=== PATIENT | female | born 2000 | race Caucasian/White ===

== ENCOUNTER 2023-05-07 14:55 | Emergency (ER) | payer OTHER, SELFPAY ==
[2023-05-07 16:13] VITALS: BP 108/73; PULSE 84; RESP 18; TEMP 36.8; O2SAT 100; BMI 20.1
== END 2023-05-07 19:24 | disposition left against medical advice (07) ==
PROVIDERS: Emergency Provider Emergency Medicine
DX: F19.90 Other psychoactive substance use, unspecified, uncomplicated (principal)
CPT/HCPCS: 99281

== ENCOUNTER 2023-12-09 14:02 | Emergency (ER) | payer OTHER, SELFPAY ==
[2023-12-09 14:07] VITALS: BP 118/70; PULSE 84; O2SAT 99
[2023-12-09 14:41] VITALS: BP 110/38; PULSE 76; RESP 14; TEMP 37; O2SAT 97
--- NOTE | 2023-12-09 14:42 | ED.ABDPAIN ---
HPI - Abdominal Pain General Chief Complaint: Abdominal Pain Stated Complaint: LLQ PAIN X15 MIN PER EMS Time Seen by Provider: 12/09/23 17:07 Source: patient and old records reviewed History of Present Illness HPI narrative: Jenny is a 23 year old female with history of substance abuse presents today for evaluation of LLQ pain. She was brought in by ambulance for LLQ pain. No N/V/D. She suspects that she has food poisoning. Denies chance of , states that she is currently not sexually active. MD elicited complaint: abdominal pain Onset (ago): hour(s) Location: LLQ Quality: cramping Associated symptoms: denies other symptoms Related Data Allergies Allergy/AdvReac Type Severity Reaction Status Date / Time morphine [MORPHINE] Allergy Mild SWELLING Verified 05/07/23 16:12 Penicillins [PCN] Allergy Mild SWELLING Verified 05/07/23 16:12 Review of Systems Review of Systems Yes all other systems are reviewed and are negative PMFSH Social History Social History Advance Directives: No Advance Directives Information Provided: Yes Physical Exam ED Vital Signs: Vital Signs - 24 hr 12/09/23 14:41 12/09/23 17:02 Temperature 98.6 F 99.2 F Pulse Rate 76 73 Respiratory Rate 14 18 Blood Pressure 110/38 L 107/48 L Pulse Oximetry 97 95 Oxygen Delivery Method Room Air Room Air BMI result Body Mass Index 0.0 Appearance: Alert. Oriented X3. No acute distress. Eyes: Pupils equal, round and reactive to light. ENT: Pharynx normal. No tonsillar swelling or exudate. Neck: Normal inspection. CVS: Normal heart rate and rhythm. Pulses normal. Respiratory: No respiratory distress. Breath sounds normal. Abdomen: Soft and nontender. Skin: Skin warm and dry. Extremities: No lower extremity edema. No joint swelling. Neuro/psych: Oriented X 3. No motor deficit. Normal speech and cognition. Course Course Course Narrative: This is a Rapid Medical Examination (RME) in triage, full HPI, ROS, assessment and plan per primary provider in the Main ED. 23 yo female with history of asthma [facility] for evaluation of acute onset of LLQ pain that started around 1:50pm. +diarrhea x1. Thinks she has food poisoning. Pain started to ease, now 6/10. LMP 1 month ago. Lethargic in triage Plan: labs, RIVERO, Upreg Medical Decision Making Medical Decision Making [facility] Narrative: Jenny is a 23 year old female with history of substance abuse presenting today for evaluation of LLQ pain. She was [facility]IB[facility] from the [facility] where they found her drowsy and with LLQ. Teri N/V/D. On reevaluation, she states that she is feeling better and wishes to leave. Labs are significant for microcytic anemia, she states that she is aware of this. Low suspicion for , she is adamant about no sexual activity. She is alert and oriented x3. No pain with palpation of the abdomen and has no complaints at this time. She is stable and safe to discharge home. Differential Diagnosis Differential Diagnoses: The differential diagnosis associated with the presentation includes viral gastroenteritis, food poisoning, COVID, flu, acute substance intoxication, Lab Data [facility] Lab Attestation statement: I reviewed the patient's lab results. Positive for microcytic anemia. 12/09/23 14:56 12/09/23 14:56 Labs: Lab Results 12/09/23 Range/Units 14:56 WBC 9.2 (4.8-10.8) X10*3/uL RBC 4.92 (4.20-5.50) X10*6/uL Hgb 8.3 L (12.0-16.0) g/dl Hct 31.0 L (37.0-47.0) % MCV 63.0 L (80.0-98.0) fL MCH 16.9 L (27.0-33.0) pg MCHC 26.8 L (31.0-35.0) g/dl RDW 19.6 H (11.0-16.0) % Plt Count 493 H (160-400) X10*3/uL MPV 7.8 L (9.4-12.3) fL Immature Gran % (Auto) 0.4 (0.0-0.4) % Neut % (Auto) 76.6 H (45-73) % Lymph % (Auto) 15.7 L (20-40) % Price % (Auto) 6.2 (2-11) % Eos % (Auto) 0.7 (0-4) % Baso % (Auto) 0.4 (0-2) % Lymph # (Auto) 1.4 (1.2-4.9) X10*3/uL Price # (Auto) 0.6 (0.1-1.2) X10*3/uL Eos # (Auto) 0.1 (0.0-0.4) X10*3/uL Baso # (Auto) 0.0 (0.0-0.2) X10*3/uL Abs Immat Gran (auto) 0.04 H (0.00-0.03) X10*3/uL Absolute Neuts (auto) 7.1 (2.0-8.3) x10*3/uL Absolute Nucleated RBC 0.000 (0.0-0.012) X10*3/uL Nucleated RBC % (auto) 0.0 (0.0-0.2) /100WBC Sodium 140 (135-145) mmol/L Potassium 3.9 (3.3-5.1) mmol/L Chloride 108 (96-108) mmol/L Carbon Dioxide 28 (22-29) mmol/L Anion Gap 8 L (12-20) BUN 11 (9-16) mg/dL Creatinine 0.70 (0.5-1.4) mg/dL Estim Creat Clear Calc TNP Estimated GFR > 60 Random Glucose 81 (60-115) mg/dL Calcium 9.3 (8.4-10.2) mg/dL Magnesium 1.9 (1.6-2.6) mg/dL Total Bilirubin 0.2 (0.0-1.0) mg/dL Direct Bilirubin < 0.2 (0.0-0.5) mg/dL AST 16 (5-31) U/L ALT 7 (0-31) U/L Alkaline Phosphatase 65 (39-117) U/L Total Protein 7.6 (6.5-8.0) g/dL Albumin 3.5 (3.5-5.0) g/dL Lipase 19 (8-78) U/L Ethyl Alcohol < 10 mg/dL Independent Historian Clinical information obtained from an independent historian. History obtained from or confirmed by: Parent External Record Review External record reviewed: Outpatient record and Prior outpatient labs Prescription Management I considered prescription management with: Antibiotic Chronic Conditions Patient?s care impacted by: Other (substance use) Discharge Plan Discharge Clinical Impression: Abdominal pain Qualifiers: Abdominal location: left lower quadrant Qualified Code(s): R10.32 - Left lower quadrant pain Patient Disposition: Home, Self-Care Instructions: Abdominal Pain (ED) Additional Instructions: your labs showed anemia you should take an iron supplement your pancreas, kidney and liver tests were normal Recommend rest and plenty of oral hydration. Stick to a bland diet like soup and toast while you are not feeling well. Follow up with your doctor as needed. If you develop new or worsening symptoms call 911 or come back to the ER for further evaluation.
[2023-12-09 15:00] LABS: MANUAL DIFF FLAG NO
[2023-12-09 15:03] LABS: Basophils Percent Auto 0.4 % (0-2); Eosinophils Absolute Auto 0.1 X10*3/uL (0.0-0.4); Eosinophils Percent Auto 0.7 % (0-4); Hemoglobin 8.3 g/dl (12.0-16.0); Imm Gran Abs Auto 0.04 X10*3/uL (0.00-0.03); Imm Gran Pct Auto 0.4 % (0.0-0.4); Lymphocytes Absolute Auto 1.4 X10*3/uL (1.2-4.9); Lymphocytes Percent Auto 15.7 % (20-40); Mean Corpuscular HGB Conc 26.8 g/dl (31.0-35.0); Mean Corpuscular Hemoglobin 16.9 pg (27.0-33.0); Mean Platelet Volume 7.8 fL (9.4-12.3); Monocytes Absolute Auto 0.6 X10*3/uL (0.1-1.2); Monocytes Percent Auto 6.2 % (2-11); Neutrophils Absolute Auto 7.1 x10*3/uL (2.0-8.3); Neutrophils Percent Auto 76.6 % (45-73); Platelet Count 493 X10*3/uL (160-400); Red Blood Count 4.92 X10*6/uL (4.20-5.50); Red Cell Distribution Width 19.6 % (11.0-16.0); White Blood Count 9.2 X10*3/uL (4.8-10.8)
[2023-12-09 15:17] LABS: Alanine Aminotransferase 7 U/L (0-31); Albumin Level 3.5 g/dL (3.5-5.0); Alkaline Phosphatase 65 U/L (39-117); Anion Gap 8 (12-20); Aspartate Amino Transferase 16 U/L (5-31); Bilirubin Direct < 0.2 mg/dL (0.0-0.5); Bilirubin Total 0.2 mg/dL (0.0-1.0); Blood Urea Nitrogen 11 mg/dL (9-16); Calcium 9.3 mg/dL (8.4-10.2); Carbon Dioxide 28 mmol/L (22-29); Chloride 108 mmol/L (96-108); Estimated Glomerular Filt Rate > 60; Ethanol < 10 mg/dL; Glucose Random 81 mg/dL (60-115); Lipase 19 U/L (8-78); Magnesium 1.9 mg/dL (1.6-2.6); Potassium 3.9 mmol/L (3.3-5.1); Sodium 140 mmol/L (135-145); Total Protein 7.6 g/dL (6.5-8.0)
[2023-12-09 17:02] VITALS: BP 107/48; PULSE 73; RESP 18; TEMP 37.3; O2SAT 95
[2023-12-09 17:15] VITALS: BP 107/48; PULSE 73; RESP 18; TEMP 37.3; O2SAT 95
== END 2023-12-09 17:16 | disposition home or self-care (01) ==
PROVIDERS: Physician Assistant; Emergency Provider Emergency Medicine Emergency Medical Services
DX: R10.32 Left lower quadrant pain (principal); J45.909 Unspecified asthma, uncomplicated; Z88.0 Allergy status to penicillin; Z88.5 Allergy status to narcotic agent
CPT/HCPCS: 36415; 80048; 80076; 80307; 83690; 83735; 85025; 99282; 99283

== ENCOUNTER 2024-02-18 10:34 | Inpatient (IN) | payer SELFPAY ==
[2024-02-18] VITALS (7 sets, daily range): BP systolic 128–138; BP diastolic 60–89; PULSE 74–96; RESP 16; TEMP 36.6–38; O2SAT 95–100; BMI 21.3
--- NOTE | ~2024-02-18 | CT_ITS ---
EXAMINATION: CT SOFT TISSUE NECK WITHOUT CONTRAST CLINICAL INFORMATION: Right facial swelling and dental abscess COMPARISON: None available. TECHNIQUE: Helical imaging was performed in the axial plane with generation of coronal and sagittal reformatted images. This CT examination was performed using dose optimization techniques as appropriate, variously including the following: *Automated exposure control *Adjustment of mA and/or kV according to patient size (this includes techniques or standardized protocols for targeted exams where dose is matched to indication/reason for exam; i.e. extremities or head) *Use of iterative reconstruction technique DLP: 297 mGy-cm FINDINGS: SOFT TISSUE: There is marked asymmetric thickening of the right mandibular submandibular soft tissue and underlying platysma muscle, extensive inflammatory stranding is seen in subcutaneous tissue around the right lower jaw. There is no rim-enhancing soft tissue abscess visualized. PHARYNX: The visualized nasopharynx, oropharynx, hypopharynx are normal with no focal mass lesion. PHARYNGEAL STRUCTURES: Bilateral valleculae, epiglottis, piriform sinuses, vocal cords and arytenoids are normal. Paranasal sinuses: A globular shaped mucosal lesion is seen attached to anterior roof of left maxillary sinus measuring 1.1 cm in AP diameter, 1.5 cm in width, 0.8 cm in vertical height. At the left maxillary sinus floor, a polypoid mucosal lesions is seen, measuring 2.1 cm in AP and transverse diameter, 1.1 cm in vertical height. Mild mucosal thickening is also seen at the floor of right maxillary sinus. SALIVARY GLANDS: Bilateral parotid and submandibular salivary glands are symmetrical without focal lesion. LYMPH NODES: Markedly enlarged right level 1B cervical lymph nodes are seen measuring up to 1.5 cm in AP diameter, 1.0 cm in width. Smaller left level 1B cervical lymph node measures 1.1 cm in AP diameter, 0.7 cm in width. THYROID: No focal thyroid mass lesion is found. BONES: The visualized mandible is intact. No focal bone defect or periosteal reaction could be seen. The visualized lower jaw teeth are intact. No fracture or dislocation. No focal bone lesion diagnostic of metastatic disease could be seen in the cervical spine and visualized skull base. LUNG APICES: Irregular lobulated mass like alveolar density with radiolucent tracts suggestive of air bronchograms is partially visualized in posterior right upper lobe apical segment extending to the posterior pleural border, measuring 3.9 cm in AP diameter, 2.6 cm in width in the visible portion. CT/CT soft tissue neck wo IV con IMPRESSION: 1. Findings are compatible with severe right submandibular cellulitis without well-defined soft tissue abscess. 2. No signs of mandibular osteomyelitis or dental abscess could be seen. 3. Markedly enlarged right level 1B cervical lymph nodes. 4. Irregular lobulated mass like alveolar density with radiolucent tracts suggestive of air bronchograms is partially visualized in posterior right upper lobe apical segment extending to the posterior pleural border. Findings could represent focal pneumonia, mycetoma or lung tumor. Further evaluation with contrast-enhanced CT scan of chest is recommended. 5. Left maxillary sinus polypoid mucosal lesions.
--- NOTE | 2024-02-18 10:59 | MHC.RECOVRN ---
Received call from [employer] this morning that a participant was in need of medical attention due to mouth abscess and bilateral hip pain, however, was anxious regarding coming to the hospital. Met with pt upon arrival to [facility], pt acting erratically with sporadic periods of lethargy. Pt is unstably housed, reports she has been walking x 7 days. Pt reports she has a hole in her tooth which has led to the abscess. Difficult to engage in further conversation. Upon medical clearance, pt is able to utilize [employer] for transport. [employer] phone number: .
--- NOTE | 2024-02-18 11:10 | PC.NURSE ---
Patient brought into [facility] from waiting room. patient not answering this RN's questions or the PA's questions. patient keeps groaning, repositioning self on stretcher and not opening eyes. education administrative assistant applied, NSR, HR 91 resp even and non labored at 16, O2 100%, patient keeps pulling off pulse oximeter. provider aware
--- NOTE | 2024-02-18 13:16 | ED_ITS ---
HPI - General Adult General Chief complaint: Dental/Oral Stated complaint: Mouth abscess Time Seen by Provider: 02/18/24 10:50 Source: patient, RN notes reviewed and old records reviewed Mode of arrival: ambulatory History of Present Illness ED Provider: Muriel Elliott PA-C HPI narrative: 23-year-old female with a past medical history of polysubstance abuse, presenting to ED from [facility] complaining of right-sided facial swelling/suspected dental abscess noted yesterday. Patient lethargic/under the influence, uncooperative with history/physical. Patient is homeless Related Data Previous Rx's ?Medication ?Instructions ?Recorded acetaminophen 500 mg tablet 500 mg PO Q6H PRN fever or pain 02/18/24 (Tylenol Extra Strength) #14 tabs clindamycin HCl 150 mg capsule 450 mg (3 x 150 mg) PO TID 10 days 02/18/24 #90 caps ibuprofen 800 mg tablet 800 mg PO Q8H PRN pain #14 tabs 02/18/24 Allergies Allergy/AdvReac Type Severity Reaction Status Date / Time morphine [MORPHINE] Allergy Mild SWELLING Verified 02/18/24 10:43 Penicillins [PCN] Allergy Mild SWELLING Verified 02/18/24 10:43 Review of Systems 2 Review of Systems: ENT: +dental pain, +facial swelling ROS limited due to patient under the influence Yes all other systems are reviewed and are negative Constitutional: Constitutional: Reports as per [facility] Past Medical History Attestation statement: The following information was validated with the patient. Source: old records reviewed Social History Social History Unable to assess alcohol history related to: Refusing to respond Use of substances other than those prescribed or required for medical reasons: Refusing to respond Advance Directives: No Advance Directives Information Provided: Yes Physical Exam ED Vital Signs: Vital Signs - 24 hr 02/18/24 10:41 02/18/24 11:21 02/18/24 11:56 Temperature 99.0 F Pulse Rate 94 91 96 Respiratory Rate 16 16 16 Blood Pressure 138/60 Pulse Oximetry 95 100 97 Oxygen Delivery Method Room Air Room Air Room Air 02/18/24 14:00 02/18/24 18:00 02/18/24 20:20 Temperature 100 F 100.4 F 97.9 F Pulse Rate 90 81 76 Respiratory Rate 16 Blood Pressure 130/75 128/76 136/89 Pulse Oximetry 96 96 97 Oxygen Delivery Method Room Air Room Air Room Air 02/18/24 22:11 02/19/24 00:05 02/19/24 02:00 Temperature 98.6 F 97.9 F 98.6 F Pulse Rate 74 64 77 Respiratory Rate 16 16 16 Blood Pressure 130/62 132/74 134/53 L Pulse Oximetry 96 96 98 Oxygen Delivery Method Room Air Room Air Room Air BMI result Body Mass Index 21.3 Const Other: lethargic, under the influence General: no acute distress, lethargic and poor hygiene Orientation/consciousness: lethargic HENOH Other: +right sided facial/jaw swelling. no erythema. difficult to exam due to patient being uncooperative. no overt palpable dental abscess/obvious broken teeth Head: Yes normal to inspection and Yes atraumatic Ears: hearing grossly normal bilaterally General nose exam: Normal external nose present Mouth: no audible dysphonia, no drooling and no muffled voice Throat: Yes uvula midline Eyes General: appearance normal, both eyes and all related structures Neck Neck: Yes normal visual inspection and Yes no meningeal signs Resp Effort & Inspection: normal respiratory effort and no respiratory distress Cardio Rate: regular rate Skin Other: +skin picking Neuro General: tone normal and no meningeal signs Cranial nerves: Yes CN's II-XII intact bilaterally Extrem General: Yes normal to inspection Course Course Course Narrative: -1200--patient is still sleeping, maintaining airway, difficult to arouse -1310--patient more awake, sleepy, reports dental pain/right-sided facial swelling since yesterday. Remains difficult to examine. Will obtain labs and CT > patient refusing labs/IV. Also refused 800mg of ibuprofen. Case discussed with ED attending Dr. Umana who also evaluated patient. Will try to obtain CT dry & give PO clindamycin -1705--patient is still lethargic, easily arousable however remains uncooperative. Still refusing labs/IV, however did take ibuprofen and Clindamycin in the ED. CT soft tissue neck wo IV con IMPRESSION: 1. Findings are compatible with severe right submandibular cellulitis without well-defined soft tissue abscess. 2. No signs of mandibular osteomyelitis or dental abscess could be seen. 3. Markedly enlarged right level 1B cervical lymph nodes. 4. Irregular lobulated mass like alveolar density with radiolucent tracts suggestive of air bronchograms is partially visualized in posterior right upper lobe apical segment extending to the posterior pleural border. Findings could represent focal pneumonia, mycetoma or lung tumor. Further evaluation with contrast-enhanced CT scan of chest is recommended. 5. Left maxillary sinus polypoid mucosal lesions. > chest CT with IV contrast recommended however patient not agreeable to IV, will need as outpatient. Clindamycin will cover for possible pneumonia/submandibular cellulitis. We will continue to monitor for clinical sobriety. Will recommend admission if patient agreeable -1837--multiple attempts made to discuss patient's CT findings/recommended admission -1899--ED care transferred to [facility] One[facility] pending clinical sobriety. Reevaluation(s) Reevaluation #1: Away to re-evaluate patient and recommended she be admitted this and allow us to draw labs and start IV antibiotics but patient refused even when explained risk of , sepsis, disability if not treated and she still signed against medical advice. Patient is alert oriented x3. Time: 01:18 Reevaluation #2: Patient change her mind and now agreeable for admission for submandibular cellulitis. Case discussed with hospitalist Dr. Bell for admission. Time: 02:26 Medications Administered Discontinued Medications Generic Name Dose Route Start Last Admin Trade Name Freq PRN Reason Stop Dose Admin Clindamycin HCl 450 mg 02/18/24 13:45 02/18/24 16:33 Clindamycin Hcl 150 Mg Capsule PO 02/18/24 13:46 450 mg ONCE ONE Administration Ibuprofen 800 mg 02/18/24 13:18 02/18/24 16:32 Ibuprofen 800 Mg Tablet PO 02/18/24 13:19 800 mg ONCE ONE Administration Medical Decision Making Medical Decision Making MDM Narrative: 23-year-old female with a past medical history of polysubstance abuse, presenting to ED from [facility] complaining of right-sided facial swelling/suspected dental abscess noted yesterday. On exam low-grade temp 99 degrees, under the influence, lethargic, easily arousable however uncooperative, eyes closed during entire evaluation, flailing arms. Difficult to examine. Concern for dental abscess vs cellulitis and polysubstance use. Rule out osteomyelitis. Airway patent, talking in complete sentences, no drooling. Plan: Labs, CT, tox screen, antibiotics, pain control, observe and re-evaluate for clinical sobriety Please refer to course for remaining clinical decision making, interpretation of labs/imaging results, and discussions with consultants and/or family members. Differential Diagnosis Differential Diagnoses: The differential diagnosis associated with the presentation includes As above Admission/Observation Consideration of admission/observation: Escalation of care including admission/observation considered Lab Data MDM Lab Attestation statement: I reviewed the patient's lab results. 02/19/24 01:55 02/19/24 01:54 Labs: Lab Results 02/18/24 02/19/24 02/19/24 Range/Units 16:42 01:55 01:56 WBC 8.3 (4.8-10.8) X10*3/uL RBC 4.60 (4.20-5.50) X10*6/uL Hgb 7.8 L (12.0-16.0) g/dl Hct 27.3 L (37.0-47.0) % MCV 59.3 L (80.0-98.0) fL MCH 17.0 L (27.0-33.0) pg MCHC 28.6 L (31.0-35.0) g/dl RDW 18.6 H (11.0-16.0) % Plt Count 389 (160-400) X10*3/uL MPV 8.8 L (9.4-12.3) fL Immature Gran % (Auto) 0.2 (0.0-0.4) % Neut % (Auto) 63.1 (45-73) % Lymph % (Auto) 24.9 (20-40) % Stevens % (Auto) 9.0 (2-11) % Eos % (Auto) 2.2 (0-4) % Baso % (Auto) 0.6 (0-2) % Lymph # (Auto) 2.1 (1.2-4.9) X10*3/uL Stevens # (Auto) 0.7 (0.1-1.2) X10*3/uL Eos # (Auto) 0.2 (0.0-0.4) X10*3/uL Baso # (Auto) 0.1 (0.0-0.2) X10*3/uL Abs Immat Gran (auto) 0.02 (0.00-0.03) X10*3/uL Absolute Neuts (auto) 5.2 (2.0-8.3) x10*3/uL Absolute Nucleated RBC 0.000 (0.0-0.012) X10*3/uL Nucleated RBC % (auto) 0.0 (0.0-0.2) /100WBC Lactic Acid 0.6 (0.5-2.0) mmol/L Urine Opiates Screen POSITIVE H (Not Detect) Ur Buprenorphine Scrn Not Detected (Not Detect) ng/mL Ur Oxycodone Screen Not Detected (Not Detect) ng/mL Urine Methadone Screen Not Detected (Not Detect) ng/mL Urine Fentanyl Screen POSITIVE H (Not Detect) Ur Barbiturates Screen Not Detected (Not Detect) Ur Phencyclidine Scrn Not Detected (Not Detect) Ur Amphetamines Screen Not Detected (Not Detect) U Benzodiazepines Scrn Not Detected (Not Detect) Urine Cocaine Screen POSITIVE H (Not Detect) U Marijuana (THC) Screen Not Detected (Not Detect) Independent Interpretation I performed an independent interpretation of an: CT Scan Radiology Impression Discussion of test interpretation with radiology: I have reviewed the radiologist's reading. External Record Review External record reviewed: Inpatient record, Office record, Outpatient record, Prior outpatient labs, Prior outpatient radiology, Primary care record and Outside ED record Tests considered The following testing was considered but not selected: As above Prescription Management I considered prescription management with: Antibiotic Social Determinants Patient?s care significantly limited by Social Determinants of Health including: Inadequate housing, Low income and Alcoholism and drug addiction in family Critical Care Time Critical Care Time Critical Care Time: Yes Total Critical Care Time: 45 Attestation: I have personally provided critical care time exclusive of time spent on separately billable procedures. Time includes review of lab data, radiology results, discussion with consultants, and monitoring for potential decompensation. Intervention performed as documented. Discharge Plan Discharge Clinical Impression: Cellulitis of submandibular region, Lung mass Patient Disposition: Left Against Medical Advice Instructions: Cellulitis (DC) Additional Instructions: You have severe cellulitis of your submandibular region. Clindamycin as an antibiotic please take as prescribed until completion your CT shows a lobulated mass in your lung. This could represent a pneumonia or fungal infection or tumor. You need further imaging with a CT scan with IV contrast. Please take ibuprofen and Tylenol for pain/swelling If pain/swelling persists or worsens, you develop difficulty breathing, shortness of breath or fever return to the ED immediately You need to follow-up for re-evaluation in 2 days come back to the ED [facility] [id number] [address] [facility] [address], [place] [address] Prescriptions: New clindamycin HCl 150 mg capsule 450 mg PO TID 10 Days Qty: 90 0RF ibuprofen 800 mg tablet 800 mg PO Q8H PRN (Reason: pain) Qty: 14 0RF acetaminophen [Tylenol Extra Strength] 500 mg tablet 500 mg PO Q6H PRN (Reason: fever or pain) Qty: 14 0RF Referrals: [facility] [Outside] Physician,Unknown J [Primary Care Provider] - 2 days Stand Alone Forms: Against Medical Advice Print Language: Nepali
--- NOTE | 2024-02-18 13:40 | PC.NURSE ---
Patient awake, restless on stretcher, complaining of pain. PA to bedside to examine patient. PA explained plan of care for blood work and CT, pt agreeable. This RN attempted to place an IV and obtain blood work. Patient immediately moving arm away and refusing IV and blood work. Patient also refusing motrin. PA aware.
--- NOTE | 2024-02-18 15:33 | PC.NURSE ---
Patient sleeping, awakens to verbal stimuli. when asked how she is feeling patient states horrible. Patient then goes back to sleep. This RN continues to make attempts to medicate patient. Patient becomes irritated when RN wakes her up aeb yelling and flailing her legs then goes back to sleep. PA aware.
[2024-02-18] MEDS: Ibuprofen 800 MG TABLET PO (16:32)
[2024-02-18] MEDS: Clindamycin HCL 150 MG CAPSULE 450 MG PO (16:33)
[2024-02-18 17:01] LABS: Amphetamine Screen Urine Not Detected (Not Detect); Barbiturates, Urine Not Detected (Not Detect); Benzodiazepines Screen Urine Not Detected (Not Detect); Buprenorphine Scr Not Detected (Not Detect); Cannabinoid Screen Urine Not Detected (Not Detect); Cocaine Screen Urine POSITIVE (Not Detect); Fentanyl, urine POSITIVE (Not Detect); Methadone Screen, Urine Not Detected (Not Detect); Opiate Screen Urine POSITIVE (Not Detect); Oxycodone Screen Urine Not Detected (Not Detect); Phencyclidine Screen Urine Not Detected (Not Detect)
--- NOTE | 2024-02-18 22:00 | PC.NURSE ---
Pt resting quietly. States shes feeling okay. Denies any other needs at this time.
[2024-02-19] VITALS (9 sets, daily range): BP systolic 120–134; BP diastolic 53–76; PULSE 64–94; RESP 14–20; TEMP 36.6–37.5; O2SAT 96–100
--- NOTE | 2024-02-19 01:55 | PC.NURSE ---
Went in to give pt AMA form to sign and explain prescription medications and pt states she does not want to leave at this time and agreeable to admission. #20 PIV initiated to left forearm, blood cultures drawn, other labs drawn and sent to lab. Pt requesting food at this time. Denies any other needs.
[2024-02-19 02:05] LABS: MANUAL DIFF FLAG NO
[2024-02-19 02:06] LABS: Basophils Absolute Auto 0.1 X10*3/uL (0.0-0.2); Basophils Percent Auto 0.6 % (0-2); Eosinophils Absolute Auto 0.2 X10*3/uL (0.0-0.4); Eosinophils Percent Auto 2.2 % (0-4); Hematocrit 27.3 % (37.0-47.0); Hemoglobin 7.8 g/dl (12.0-16.0); Imm Gran Abs Auto 0.02 X10*3/uL (0.00-0.03); Imm Gran Pct Auto 0.2 % (0.0-0.4); Lymphocytes Absolute Auto 2.1 X10*3/uL (1.2-4.9); Lymphocytes Percent Auto 24.9 % (20-40); Mean Corpuscular HGB Conc 28.6 g/dl (31.0-35.0); Mean Corpuscular Volume 59.3 fL (80.0-98.0); Mean Platelet Volume 8.8 fL (9.4-12.3); Monocytes Absolute Auto 0.7 X10*3/uL (0.1-1.2); Neutrophils Absolute Auto 5.2 x10*3/uL (2.0-8.3); Neutrophils Percent Auto 63.1 % (45-73); Platelet Count 389 X10*3/uL (160-400); Red Cell Distribution Width 18.6 % (11.0-16.0); White Blood Count 8.3 X10*3/uL (4.8-10.8)
[2024-02-19 02:22] LABS: Lactic Acid 0.6 mmol/L (0.5-2.0)
[2024-02-19 02:30] LABS: Alanine Aminotransferase 19 U/L (0-31); Albumin Level 3.2 g/dL (3.5-5.0); Alkaline Phosphatase 62 U/L (39-117); Anion Gap 13 (12-20); Aspartate Amino Transferase 31 U/L (5-31); Bilirubin Total 0.4 mg/dL (0.0-1.0); Blood Urea Nitrogen 5 mg/dL (9-16); C Reactive Protein 9.96 mg/dL (< or = 0.50); Calcium 8.5 mg/dL (8.4-10.2); Carbon Dioxide 25 mmol/L (22-29); Chloride 104 mmol/L (96-108); Creatinine Clr Calc Pharmacy 140.3; Estimated Glomerular Filt Rate > 60; Glucose Random 76 mg/dL (60-115); Potassium 2.9 mmol/L (3.3-5.1); Sodium 139 mmol/L (135-145); Total Protein 6.1 g/dL (6.5-8.0)
[2024-02-19 02:38] LABS: Erythrocyte Sedimentation Rate 16 MM/HR (0-20)
[2024-02-19] MEDS: Potassium Chloride Packet 20 MEQ PACKET 40 MEQ PO (03:13)
[2024-02-19] MEDS: Clindamycin Phosphate/D5W 600 MG/50 ML PIGGYBACK 100 MG IV (03:13)
--- NOTE | 2024-02-19 03:13 | PC.NURSE ---
Pt medicated per MAR. Denies any other needs at this time .
--- NOTE | 2024-02-19 04:24 | P.HPHOSP_ITS ---
History of Present Illness Date of Service: 02/19/24 Attending physician on admission: Lacy Parada Chief Complaint: Right facial swelling Jenny Mcrae is a 23 years old woman with history of polysubstance abuse and homeless presents to the ED department complaining of right facial swelling over the last 2 days. She does complain of associated tenderness. She denies teeth pain. Patient would not answered my questions or examined her. She seems to be drowsy and annoyed by my questions. She told me she accepts to be admitted. According to ED provider the patient was initially refusing hospitalization and wanted to leave AMA. Last vital signs are normal (3:54 AM). Blood workup is remarkable for hyponatremia of 2.9. There is no leukocytosis or lactic acidosis. CRP is elevated. No other significant electrolyte imbalances noted. Renal function is normal as well as LFTs. Urine drug screen is positive for fentanyl, opiates and cocaine. Soft tissue neck without IV contrast showed findings compatible with severe right submandibular cellulitis without well-defined soft tissue abscess, no sign of mandibular osteomyelitis or dental abscess could be seen, marked enlarged right level 1B cervical lymph nodes and finding consistent with focal pneumonia, mycetoma or lung tumor in the right upper lobe. Chest CTA scan with IV contrast was recommended but the patient refused IV contrast. Review of Systems 2 Review of Systems: Limited as the patient was poorly cooperative. [facility] Medical History (Updated 02/19/24 @ 04:55 by Lacy Parada MD) IV drug user Chronic anemia Social History Unable to assess alcohol history related to: Refusing to respond Use of substances other than those prescribed or required for medical reasons: Refusing to respond Advance Directives: No Advance Directives Information Provided: Yes Meds Allergies Allergy/AdvReac Type Severity Reaction Status Date / Time morphine [MORPHINE] Allergy Mild SWELLING Verified 02/18/24 10:43 Penicillins [PCN] Allergy Mild SWELLING Verified 02/18/24 10:43 Active Medications: Current Medications Acetaminophen (Acetaminophen 325 Mg Tablet) 975 mg PO Q6H PRN PRN Reason: mild pain, headache or fever Levofloxacin (Levaquin) 750 mg in 150 mls @ 100 mls/hr IV Q24H [facility] Metronidazole (Flagyl) 500 mg in 100 mls @ 100 mls/hr IV Q8H [facility] Ibuprofen (Ibuprofen 400 Mg Tablet) 400 mg PO Q6H PRN PRN Reason: Pain, Severe (Pain Scale 7-10) Pharmacy Consult (Consult Rx Vancomycin Dosing) 1 each MISCELLANE DAILY PRN PRN Reason: Consult order Sodium Chloride (0.9 % Sodium Chloride Flush 3 Ml Syringe) 3 ml IVFLUSH QSHIFT LILIA Physical Exam 2 Vital Signs and Narrative: Vital Signs: Last Vital Signs Temp 98.8 F 02/19/24 03:54 Pulse 80 02/19/24 03:54 Resp 16 02/19/24 03:54 BP 130/70 02/19/24 03:54 Pulse Ox 98 02/19/24 03:54 O2 Del Method Room Air 02/19/24 03:54 BMI result Body Mass Index 21.3 Constitutional - Drowsy. Easily arousable but poorly cooperative with interview and physical examination. No respiratory distress. Afebrile. HEENT - Normocephalic. Right mandibular region swelling and tenderness to palpation. No erythema. Neck is supple and normal. Patient refused the rest of physical exam. Results Labs 02/19/24 01:55 02/19/24 01:54 Labs: Laboratory Results - last 24 hr 02/18/24 02/19/24 02/19/24 16:42 01:54 01:55 MCV 59.3 L MCH 17.0 L MCHC 28.6 L RDW 18.6 H Plt Count 389 MPV 8.8 L Immature Gran % (Auto) 0.2 Neut % (Auto) 63.1 Lymph % (Auto) 24.9 [place] % (Auto) 9.0 Eos % (Auto) 2.2 Baso % (Auto) 0.6 Lymph # (Auto) 2.1 [place] # (Auto) 0.7 Eos # (Auto) 0.2 Baso # (Auto) 0.1 Abs Immat Gran (auto) 0.02 Absolute Neuts (auto) 5.2 Absolute Nucleated RBC 0.000 Nucleated RBC % (auto) 0.0 ESR 16 Anion Gap 13 Estim Creat Clear Calc 140.3 Estimated GFR > 60 Random Glucose 76 Lactic Acid Calcium 8.5 D Total Bilirubin 0.4 AST 31 ALT 19 Alkaline Phosphatase 62 C-Reactive Protein 9.96 H Total Protein 6.1 L Albumin 3.2 L Urine Opiates Screen POSITIVE H Ur Buprenorphine Scrn Not Detected Ur Oxycodone Screen Not Detected Urine Methadone Screen Not Detected Urine Fentanyl Screen POSITIVE H Ur Barbiturates Screen Not Detected Ur Phencyclidine Scrn Not Detected Ur Amphetamines Screen Not Detected U Benzodiazepines Scrn Not Detected Urine Cocaine Screen POSITIVE H U Marijuana (THC) Screen Not Detected 02/19/24 01:56 MCV MCH MCHC RDW Plt Count MPV Immature Gran % (Auto) Neut % (Auto) Lymph % (Auto) [place] % (Auto) Eos % (Auto) Baso % (Auto) Lymph # (Auto) [place] # (Auto) Eos # (Auto) Baso # (Auto) Abs Immat Gran (auto) Absolute Neuts (auto) Absolute Nucleated RBC Nucleated RBC % (auto) ESR Anion Gap Estim Creat Clear Calc Estimated GFR Random Glucose Lactic Acid 0.6 Calcium Total Bilirubin AST ALT Alkaline Phosphatase C-Reactive Protein Total Protein Albumin Urine Opiates Screen Ur Buprenorphine Scrn Ur Oxycodone Screen Urine Methadone Screen Urine Fentanyl Screen Ur Barbiturates Screen Ur Phencyclidine Scrn Ur Amphetamines Screen U Benzodiazepines Scrn Urine Cocaine Screen U Marijuana (THC) Screen Imaging Radiologist's Impressions: Impressions Soft Tissue Neck CT 02/18/24 14:20 IMPRESSION: 1. Findings are compatible with severe right submandibular cellulitis without well-defined soft tissue abscess. 2. No signs of mandibular osteomyelitis or dental abscess could be seen. 3. Markedly enlarged right level 1B cervical lymph nodes. 4. Irregular lobulated mass like alveolar density with radiolucent tracts suggestive of air bronchograms is partially visualized in posterior right upper lobe apical segment extending to the posterior pleural border. Findings could represent focal pneumonia, mycetoma or lung tumor. Further evaluation with contrast-enhanced CT scan of chest is recommended. 5. Left maxillary sinus polypoid mucosal lesions. Assessment and Plan (1) Cellulitis of submandibular region: Status: Acute (2) Chronic anemia: Status: Acute (3) Hypokalemia: Status: Acute (4) IV drug user: Status: Acute Plan Jenny Mcrae is a 23 y/o woman. * Right submandibular cellulitis. Soft tissue CT scan showed no soft tissue or dental abscess or osteomyelitis. No sepsis criteria. Patient is homeless + IV drug user --> concern for not appropriate outpatient treatment and follow-up. Empiric IV antibiotic therapy with vancomycin, ceftriaxone and Flagyl. * Hopokalemia. KCl 4O mEq PO now. Continue to monitor K+ level. * Right upper lobe mass: Focal pneumonia versus mesothelioma or lung tumor. Patient needs chest CT scan with IV contrast for further evaluation of this mass but she has been refusing IV contrast. * Polysubstance abuse: Urine drug screen is positive for fentanyl and cocaine. Additional medicine consult. * Chronic anemia. Continue to monitor H&H. 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 DVT prophylaxis: Early ambulation Code status: Full Patient will need hospitalization for at least 2 midnight for IV antibiotic therapy for right submandibular cellulitis. Quality Stroke Does the patient have a stroke diagnosis?: No VTE Prior VTE?: No VTE Risk Level:: Medical - low VTE Device Contraindication: N/A - Device Ordered VTE Drug Contraindication: Treatment Not Indicated
[2024-02-19] MEDS: vancomycin HCL 1,500 MG in 0.9 % Sodium Chloride 500 ML 333.33 MG IV (05:10)
--- NOTE | 2024-02-19 05:56 | PC.NURSE ---
Pt with complaints of head itching during vancomycin infusion. Airway remains intact. Dr. Bell made aware. Vancomycin infusion stopped at this time.
--- NOTE | 2024-02-19 07:04 | PHA.PROG ---
Addendum entered by Hina Mera RPh 02/19/24 07:06: CURRENT DOSE 1250MG Q12H Original Note: Admission Date/Time: February 19, 2024 03:52 Indication: Skin & Skin Structure Weight in k.503 kg Adjusted body weight in Kg: Springer body weight in Kg: Obesity Dosing Indication % IBW: BMI 21.3 Serum Creatinine - Last 168 Hours 02/19/24 01:54 Creatinine 0.62 Estimated CrCl and GFR - Last 168 Hours 02/19/24 01:54 Estim Creat Clear Calc 140.3 Estimated GFR > 60 Vancomycin Loading Dose: 1500 X1 Current Vancomycin Dosing Regimen: 1500 Q12H Vancomycin Monitoring using AUC goal of 400 - 600 range with trough as surrogate marker: 491 Date and Time for next Vancomycin Level to be drawn: 02/19 @1600 Pharmacist Comments on Vancomycin Plan: Renal function stable, will follow tomorrow per trough. Vancomycin dosing will take advantage of [employer] as a clinical decision support tool that uses Bayesian modeling to calculate individual patient's pharmacokinetic parameters and forecast the patient's drug concentration time course with the target goal AUC 24 range of 400 - 600 mg/L/hr.
[2024-02-19 08:24] LABS: Iron 7 mcg/dL (30-160); Magnesium 1.9 mg/dL (1.6-2.6); Percent Iron Saturation 2 % (15-50); Total Iron Binding Capacity 287 mcg/dL (228-428); Unsaturated Iron Binding 280 ug/dL
[2024-02-19 08:37] LABS: Ferritin 10 ng/mL (10-122)
--- NOTE | 2024-02-19 09:10 | PHA.MEDREC ---
Pharmacy Consult ? Medication Reconciliation Pharmacy has completed the medication reconciliation.
--- NOTE | 2024-02-19 10:10 | HO.ADDICTCON ---
History of Present Illness Date of Service: 02/19/2024 Chief Complaint: Right Submandibular Cellulitis Reason for Consult: OUD Sources of Information: patient interviewed and chart reviewed HPI Narrative: Patient is a 23 year old female medically admitted with cellulitis of submandibular region She reports using 4-5 bags heroin/fentatnyl IN daily last use prior to ED arrival on 02/17 She is reporting very mild withdrawal at time of interview, but I know they are coming She reports she was previously on suboxone, but did not like it During interview she is appropriate, yet guarded and providing minimal responses. She does not appear restless, no yawning noted, mild body aches reported Some anxiety Review of Systems Constitutional: Reports as per HPI Diagnostics Vital Signs (24Hr): Vital Signs - 24 hr 02/18/24 10:41 02/18/24 11:21 02/18/24 11:56 Temperature 99.0 F Pulse Rate 94 91 96 Respiratory Rate 16 16 16 Blood Pressure 138/60 Pulse Oximetry 95 100 97 Oxygen Delivery Method Room Air Room Air Room Air 02/18/24 14:00 02/18/24 18:00 02/18/24 20:20 Temperature 100 F 100.4 F 97.9 F Pulse Rate 90 81 76 Respiratory Rate 16 Blood Pressure 130/75 128/76 136/89 Pulse Oximetry 96 96 97 Oxygen Delivery Method Room Air Room Air Room Air 02/18/24 22:11 02/19/24 00:05 02/19/24 02:00 Temperature 98.6 F 97.9 F 98.6 F Pulse Rate 74 64 77 Respiratory Rate 16 16 16 Blood Pressure 130/62 132/74 134/53 L Pulse Oximetry 96 96 98 Oxygen Delivery Method Room Air Room Air Room Air 02/19/24 03:54 02/19/24 05:35 02/19/24 07:35 Temperature 98.8 F 99.1 F 99.2 F Pulse Rate 80 86 89 Respiratory Rate 16 18 15 Blood Pressure 130/70 130/68 120/65 Pulse Oximetry 98 97 99 Oxygen Delivery Method Room Air Room Air Room Air BMI result Body Mass Index 21.3 Labs 02/19/24 12:46 02/19/24 12:12 Labs: Laboratory Results - last 48 hr 02/18/24 02/19/24 02/19/24 16:42 01:54 01:55 WBC 8.3 RBC 4.60 Hgb 7.8 L Hct 27.3 L MCV 59.3 L MCH 17.0 L MCHC 28.6 L RDW 18.6 H Plt Count 389 MPV 8.8 L Immature Gran % (Auto) 0.2 Neut % (Auto) 63.1 Lymph % (Auto) 24.9 [place] % (Auto) 9.0 Eos % (Auto) 2.2 Baso % (Auto) 0.6 Lymph # (Auto) 2.1 [place] # (Auto) 0.7 Eos # (Auto) 0.2 Baso # (Auto) 0.1 Abs Immat Gran (auto) 0.02 Absolute Neuts (auto) 5.2 Absolute Nucleated RBC 0.000 Nucleated RBC % (auto) 0.0 ESR 16 Sodium 139 Potassium 2.9 L* D Chloride 104 Carbon Dioxide 25 Anion Gap 13 BUN 5 L Creatinine 0.62 Estim Creat Clear Calc 140.3 Estimated GFR > 60 Random Glucose 76 Lactic Acid Calcium 8.5 D Magnesium 1.9 Iron 7 L TIBC 287 % Saturation 2 L Unsat Iron Binding 280 Ferritin 10 Total Bilirubin 0.4 AST 31 ALT 19 Alkaline Phosphatase 62 C-Reactive Protein 9.96 H Total Protein 6.1 L Albumin 3.2 L Urine Opiates Screen POSITIVE H Ur Buprenorphine Scrn Not Detected Ur Oxycodone Screen Not Detected Urine Methadone Screen Not Detected Urine Fentanyl Screen POSITIVE H Ur Barbiturates Screen Not Detected Ur Phencyclidine Scrn Not Detected Ur Amphetamines Screen Not Detected U Benzodiazepines Scrn Not Detected Urine Cocaine Screen POSITIVE H U Marijuana (THC) Screen Not Detected 02/19/24 01:56 WBC RBC Hgb Hct MCV MCH MCHC RDW Plt Count MPV Immature Gran % (Auto) Neut % (Auto) Lymph % (Auto) [place] % (Auto) Eos % (Auto) Baso % (Auto) Lymph # (Auto) [place] # (Auto) Eos # (Auto) Baso # (Auto) Abs Immat Gran (auto) Absolute Neuts (auto) Absolute Nucleated RBC Nucleated RBC % (auto) ESR Sodium Potassium Chloride Carbon Dioxide Anion Gap BUN Creatinine Estim Creat Clear Calc Estimated GFR Random Glucose Lactic Acid 0.6 Calcium Magnesium Iron TIBC % Saturation Unsat Iron Binding Ferritin Total Bilirubin AST ALT Alkaline Phosphatase C-Reactive Protein Total Protein Albumin Urine Opiates Screen Ur Buprenorphine Scrn Ur Oxycodone Screen Urine Methadone Screen Urine Fentanyl Screen Ur Barbiturates Screen Ur Phencyclidine Scrn Ur Amphetamines Screen U Benzodiazepines Scrn Urine Cocaine Screen U Marijuana (THC) Screen Imaging Radiology Impressions: ITS Impressions Soft Tissue Neck CT 02/18/24 14:20 IMPRESSION: 1. Findings are compatible with severe right submandibular cellulitis without well-defined soft tissue abscess. 2. No signs of mandibular osteomyelitis or dental abscess could be seen. 3. Markedly enlarged right level 1B cervical lymph nodes. 4. Irregular lobulated mass like alveolar density with radiolucent tracts suggestive of air bronchograms is partially visualized in posterior right upper lobe apical segment extending to the posterior pleural border. Findings could represent focal pneumonia, mycetoma or lung tumor. Further evaluation with contrast-enhanced CT scan of chest is recommended. 5. Left maxillary sinus polypoid mucosal lesions. Mental Status Exam Mental Status Exam Level of Consciousness: Awake and Appropriate Patient Behavior: Guarded and Cooperative Mood Description: Constricted Affect Description: Constricted and Anxious Medications Medications Current Medications Acetaminophen (Acetaminophen 325 Mg Tablet) 975 mg PO Q6H PRN PRN Reason: mild pain, headache or fever Levofloxacin (Levaquin) 750 mg in 150 mls @ 100 mls/hr IV Q24H [facility] Metronidazole (Flagyl) 500 mg in 100 mls @ 100 mls/hr IV Q8H [facility] Vancomycin HCl 1,250 mg/ (Sodium Chloride) 250 mls @ 166.667 mls/hr IV Q12H [facility] Ibuprofen (Ibuprofen 400 Mg Tablet) 400 mg PO Q6H PRN PRN Reason: Pain, Severe (Pain Scale 7-10) Methadone HCl (Methadone Hcl 20 Mg/2 Ml Oral.Conc) 10 mg PO ONCE ONE Stop: 02/19/24 10:06 Pharmacy Consult (Consult Rx Vancomycin Dosing) 1 each MISCELLANE DAILY PRN PRN Reason: Consult order Sodium Chloride (0.9 % Sodium Chloride Flush 3 Ml Syringe) 3 ml IVFLUSH QSHIFT LILIA Allergies Allergies Allergy/AdvReac Type Severity Reaction Status Date / Time morphine [MORPHINE] Allergy Mild SWELLING Verified 02/18/24 10:43 Penicillins [PCN] Allergy Mild SWELLING Verified 02/18/24 10:43 Assessment & Plan Assessment & Plan (1) Opioid use disorder: Status: Acute Code(s): F11.90 - Opioid use, unspecified, uncomplicated Assessment and Plan: methadone 10mg X1--minimal effect. additional 10mg ordered and administered. 10mg will be ordered for this evening (total of 30mg) tomorrow morning 30mg methadone will continue to follow Total time managing care of this patient today _35__ minutes. PMFSH Past Medical History Medical History (Updated 02/19/24 @ 10:11 by Suzanna Mason CNP) IV drug user Chronic anemia Social History Social History Unable to assess alcohol history related to: Refusing to respond Use of substances other than those prescribed or required for medical reasons: Refusing to respond Advance Directives: No Advance Directives Information Provided: Yes service: No
[2024-02-19] MEDS: levoFLOXacin/D5W 750 MG/150 ML PIGGYBACK 100 MG IV (10:26)
[2024-02-19] MEDS: 0.9 % Sodium Chloride Flush 3 ML SYRINGE IVFLUSH ×3 (10:30→22:44)
[2024-02-19] MEDS: methADONE HCl 20 MG/2 ML ORAL.CONC 10 MG PO ×3 (11:19→18:40)
--- NOTE | 2024-02-19 11:46 | PM.EVENT ---
Event Note Date of Service: 02/19/24 Event Note: Day hospitalist update S: awake/alert, c/o R-sided neck + lower facial pain no cough/hemoptysis/night sweats no travel overseas or to areas of endemic mycoses no TB exposure agrees to CT chest with contrast now O: Temp Pulse Resp BP Pulse Ox O2 Del Method 98.9 F 91 16 122/63 98 Room Air 02/19/24 10:55 02/19/24 10:55 02/19/24 10:55 02/19/24 10:55 02/19/24 10:55 02/19/24 10:55 Gen: in no acute distress HEENT: sclera anicteric, moist mucus membranes Neck: extensive swelling of anterior R neck and lower face without fluctuance Lungs: clear to auscultation bilaterally Heart: regular rate and rhythm, no murmurs Abd: soft, non-tender, non-distended Ext: no edema Skin: warm/well-perfused Neuro: alert and oriented x3, no focal findings Psych: appropriate affect Impressions Soft Tissue Neck CT 02/18/24 14:20 IMPRESSION: 1. Findings are compatible with severe right submandibular cellulitis without well-defined soft tissue abscess. 2. No signs of mandibular osteomyelitis or dental abscess could be seen. 3. Markedly enlarged right level 1B cervical lymph nodes. 4. Irregular lobulated mass like alveolar density with radiolucent tracts suggestive of air bronchograms is partially visualized in posterior right upper lobe apical segment extending to the posterior pleural border. Findings could represent focal pneumonia, mycetoma or lung tumor. Further evaluation with contrast-enhanced CT scan of chest is recommended. 5. Left maxillary sinus polypoid mucosal lesions. A/P: d1 23yo homeless F with polysubstance abuse disorder presenting with 2d of R face/neck swelling, found to have severe submandibular cellulitis but also found to have RUL mass submandibular cellulitis - 02/18- vanco + levo + metronidazole; consult ID; follow BCx RUL lobulated mass - ddx: focal PNA/abscess, mycetoma, cancer. will obtain CT chest with contrast. hypoK - repleted PO, recheck pending DEVON - replete Fe after bacterial infection under control; monitor H+H polysubstance abuse [fentanyl, cocaine] - Addiction Medicine consultation, screen for HBV/HCV/HIV VTE ppx - SCDs dispo - TBD In my clinical judgment, the patient requires continued hospitalization for the following reasons: IV ABX/imaging studies Time Spent With Patient Time: Total time managing care of this patient today ____ minutes.
[2024-02-19 12:33] LABS: Anion Gap 10 (12-20); Blood Urea Nitrogen 4 mg/dL (9-16); Calcium 8.7 mg/dL (8.4-10.2); Carbon Dioxide 26 mmol/L (22-29); Chloride 107 mmol/L (96-108); Creatinine Clr Calc Pharmacy 144.9; Estimated Glomerular Filt Rate > 60; Glucose Random 109 mg/dL (60-115); Potassium 4.2 mmol/L (3.3-5.1); Sodium 139 mmol/L (135-145)
[2024-02-19] MEDS: metroNIDAZOLE/NS 500 MG/100 ML PIGGYBACK 100 MG IV ×2 (12:39→21:07)
[2024-02-19 12:41] LABS: HCG Quantitative < 2 mIU/mL
[2024-02-19 12:52] LABS: Basophils Percent Auto 0.4 % (0-2); Eosinophils Percent Auto 0.3 % (0-4); Hematocrit 30.5 % (37.0-47.0); Hemoglobin 8.7 g/dl (12.0-16.0); Imm Gran Abs Auto 0.12 X10*3/uL (0.00-0.03); Imm Gran Pct Auto 1.2 % (0.0-0.4); Lymphocytes Percent Auto 10.2 % (20-40); MANUAL DIFF FLAG SCAN; Mean Corpuscular HGB Conc 28.5 g/dl (31.0-35.0); Monocytes Absolute Auto 0.7 X10*3/uL (0.1-1.2); Monocytes Percent Auto 6.9 % (2-11); Neutrophils Absolute Auto 8.2 x10*3/uL (2.0-8.3); PLT CLUMP 1; Red Blood Count 5.12 X10*6/uL (4.20-5.50); SCAN SMEAR FLAG 1
[2024-02-19 12:54] LABS: Mean Corpuscular Volume 59.6 fL (80.0-98.0)
[2024-02-19 13:37] LABS: Mean Platelet Volume 9.1 fL (9.4-12.3); Platelet Count 350 X10*3/uL (160-400); White Blood Count 10.1 X10*3/uL (4.8-10.8)
[2024-02-19 13:42] LABS: SLIDE REVIEW VERIFIED
--- NOTE | 2024-02-19 14:25 | MHC.CM.PN ---
Pt said that she is homeless, she does not have a PCP, or HCP and does not want information on obtaining them. She said she does not know why she is here, that what she needs is a dentist. She said that she does have Medicaid. DCP: self care, CM to follow for DC needs.
[2024-02-19] MEDS: vancomycin HCL 1,250 MG in 0.9 % Sodium Chloride 250 ML 166.67 MG IV (17:30)
[2024-02-19] MEDS: Nicotine Polacrilex 2 MG GUM BUCCAL (22:43)
[2024-02-20 03:29] VITALS: BP 126/71; PULSE 70; RESP 18; TEMP 36.3; O2SAT 97
[2024-02-20] MEDS: metroNIDAZOLE/NS 500 MG/100 ML PIGGYBACK 100 MG IV ×2 (04:12→12:34)
[2024-02-20] MEDS: vancomycin HCL 1,250 MG in 0.9 % Sodium Chloride 250 ML 166.67 MG IV (05:17)
[2024-02-20 06:27] LABS: Hematocrit 27.3 % (37.0-47.0); Hemoglobin 7.7 g/dl (12.0-16.0); Mean Corpuscular HGB Conc 28.2 g/dl (31.0-35.0); Mean Corpuscular Hemoglobin 16.8 pg (27.0-33.0); Mean Corpuscular Volume 59.7 fL (80.0-98.0); Mean Platelet Volume 9.2 fL (9.4-12.3); Platelet Count 441 X10*3/uL (160-400); Red Blood Count 4.57 X10*6/uL (4.20-5.50); Red Cell Distribution Width 19.1 % (11.0-16.0)
[2024-02-20 06:47] LABS: Alanine Aminotransferase 14 U/L (0-31); Alkaline Phosphatase 56 U/L (39-117); Anion Gap 10 (12-20); Aspartate Amino Transferase 19 U/L (5-31); Bilirubin Total 0.2 mg/dL (0.0-1.0); Blood Urea Nitrogen 5 mg/dL (9-16); Calcium 8.7 mg/dL (8.4-10.2); Carbon Dioxide 27 mmol/L (22-29); Chloride 109 mmol/L (96-108); Creatinine Clr Calc Pharmacy 149.9; Estimated Glomerular Filt Rate > 60; Glucose Random 84 mg/dL (60-115); Potassium 3.5 mmol/L (3.3-5.1); Sodium 142 mmol/L (135-145); Total Protein 5.8 g/dL (6.5-8.0)
[2024-02-20 07:51] VITALS: BP 111/53; PULSE 72; RESP 18; TEMP 36.2; O2SAT 98
[2024-02-20 08:15] LABS: HBS Num1 0.63 mIU/mL (0-7.99); HBc Num1 0.19 S/CO (0.00-0.79); HBsAGNum1 0.36 S/CO (0.00-0.99); HIV AB/AG Nonreactive (Nonreactive); HIV Num 1 0.05 S/CO (0.00-0.99); Hepatitis B Core Antibody Nonreactive (Nonreactive); Hepatitis B Surface Antigen Negative (Negative); ~HepC Num1 0.15 S/CO (0.00-0.79); ~Hepatitis B Surface Antibody NONREACTIVE (Nonreactive); ~Hepatitis C Antibody Nonreactive (Nonreactive)
[2024-02-20] MEDS: methADONE HCl 20 MG/2 ML ORAL.CONC 30 MG PO (08:41)
[2024-02-20] MEDS: 0.9 % Sodium Chloride Flush 3 ML SYRINGE IVFLUSH (08:42)
[2024-02-20] MEDS: levoFLOXacin/D5W 750 MG/150 ML PIGGYBACK 100 MG IV (08:48)
[2024-02-20] MEDS: Nicotine Polacrilex 2 MG GUM BUCCAL (08:49)
--- NOTE | 2024-02-20 09:30 | P.PNIM_ITS ---
Subjective Subjective Date of Service: 02/20/24 Interval History: refused CT chest yesterday x2 but agrees to go today no fever/cough/chills has bad tooth R neck swelling improved Review of Systems Review of Systems: Yes all other systems are reviewed and are negative Physical Exam 2 Vital Signs: Vital Signs: Last Vital Signs Temp 97.1 F 02/20/24 07:51 Pulse 72 02/20/24 07:51 Resp 18 02/20/24 07:51 BP 111/53 L 02/20/24 07:51 Pulse Ox 98 02/20/24 07:51 O2 Del Method Room Air 02/20/24 07:51 BMI result Body Mass Index 21.3 Gen: in no acute distress HEENT: sclera anicteric, moist mucus membranes Neck: extensive swelling of anterior R neck and lower face without fluctuance; improved from yesterday Lungs: clear to auscultation bilaterally Heart: regular rate and rhythm, no murmurs Abd: soft, non-tender, non-distended Ext: no edema Skin: warm/well-perfused Neuro: alert and oriented x3, no focal findings Psych: appropriate affect Objective Data Active Medications Acetaminophen (Acetaminophen 325 Mg Tablet) 975 mg PO Q6H PRN PRN Reason: mild pain, headache or fever Levofloxacin (Levaquin) 750 mg in 150 mls @ 100 mls/hr IV Q24H [facility] Last Admin: 02/20/24 08:48 Dose: 100 mls/hr Documented By: JAYSON Vancomycin HCl 1,250 mg/ (Sodium Chloride) 250 mls @ 166.667 mls/hr IV Q12H [facility] Last Infusion: 02/20/24 07:18 Dose: Infused Documented By: JAYSON Metronidazole (Flagyl) 500 mg in 100 mls @ 100 mls/hr IV Q8H [facility] Last Infusion: 02/20/24 05:12 Dose: Infused Documented By: LOREN Ibuprofen (Ibuprofen 400 Mg Tablet) 400 mg PO Q6H PRN PRN Reason: Pain, Severe (Pain Scale 7-10) Methadone HCl (Methadone Hcl 20 Mg/2 Ml Oral.Conc) 30 mg PO DAILY [facility] Last Admin: 02/20/24 08:41 Dose: 30 mg Documented By: JAYSON Nicotine Polacrilex (Nicotine Polacrilex 2 Mg Gum) 2 mg BUCCAL Q2H PRN PRN Reason: Nicotine Cravings Last Admin: 02/20/24 08:49 Dose: 2 mg Documented By: JAYSON Pharmacy Consult (Consult Rx Vancomycin Dosing) 1 each MISCELLANE DAILY PRN PRN Reason: Consult order Sodium Chloride (0.9 % Sodium Chloride Flush 3 Ml Syringe) 3 ml IVFLUSH QSHIFT [facility] Last Admin: 02/20/24 08:42 Dose: 3 ml Documented By: JAYSON Labs 02/20/24 05:16 02/20/24 05:16 Labs: Laboratory Results - last 24 hr 02/19/24 02/19/24 02/20/24 12:12 12:46 05:16 MCV 59.6 L 59.7 L MCH 17.0 L 16.8 L MCHC 28.5 L 28.2 L RDW 19.0 H 19.1 H Plt Count 350 441 H D MPV 9.1 L 9.2 L Immature Gran % (Auto) 1.2 H Neut % (Auto) 81.0 H Lymph % (Auto) 10.2 L [place] % (Auto) 6.9 Eos % (Auto) 0.3 Baso % (Auto) 0.4 Lymph # (Auto) 1.0 L [place] # (Auto) 0.7 Eos # (Auto) 0.0 Baso # (Auto) 0.0 Abs Immat Gran (auto) 0.12 H Absolute Neuts (auto) 8.2 Absolute Nucleated RBC 0.000 0.000 Nucleated RBC % (auto) 0.0 0.0 Smear Tech's Comments VERIFIED Anion Gap 10 L 10 L Estim Creat Clear Calc 144.9 149.9 Estimated GFR > 60 > 60 Random Glucose 109 84 Calcium 8.7 8.7 Magnesium 2.0 2.0 Total Bilirubin 0.2 AST 19 ALT 14 Alkaline Phosphatase 56 Total Protein 5.8 L Albumin 3.0 L Beta HCG, Quant < 2 Hep Bs Antigen Negative Hep Bs Antibody NONREACTIVE Hep B Core Total Ab Nonreactive Hepatitis C Ab (EIA) Nonreactive HIV 1&2 Ab/P24 Ag 4thGn Nonreactive Microbiology Microbiology Results: Microbiology 02/19/24 02:08 Blood Culture - Preliminary Blood - Venous No growth after 24 hours. 02/19/24 01:54 Blood Culture - Preliminary Blood - Venous No growth after 24 hours. Assessment and Plan (1) Cellulitis of submandibular region: Status: Acute Assessment and Plan: d1 23yo homeless F with polysubstance abuse disorder presenting with 2d of R face/neck swelling, found to have severe submandibular cellulitis but also found to have RUL mass submandibular cellulitis - 02/18- vancomycin + levofloxacin + metronidazole [PCN-allergic]; consult ID; follow BCx RUL lobulated mass - ddx: focal PNA/abscess, mycetoma, cancer. obtain CT chest with contrast today hypoK - repleted DEVON - replete Fe after bacterial infection under control; monitor H+H polysubstance abuse [fentanyl, cocaine] - Addiction Medicine consultated + started on methadone - HBV/HCV/HIV negative VTE ppx - SCDs dispo - TBD In my clinical judgment, the patient requires continued hospitalization for the following reasons: IV ABX/imaging studies Total time managing care of this patient today: 35 minutes. Quality Stroke Does the patient have a stroke diagnosis?: No VTE Prior VTE?: No VTE Risk Level:: Medical - low VTE Device Contraindication: N/A - Device Ordered VTE Drug Contraindication: Treatment Not Indicated
--- NOTE | 2024-02-20 10:33 | P.PNADD_ITS ---
Subjective Subjective Date of Service: 02/20/24 Reason For Visit: Right Submandibular Cellulitis Interim History: Patient seen in follow up methadone 30mg --tolerating dose. Does not appear to be experiencing any withdrawal sx and is not reporting any no issues reported overnight Additional history obtained She reports opiate use started at age 13 denies any history of IVDU previous treatment while incarcerated unhoused She would like to continue with methadone and requests referral to [facility] Review of Systems Constitutional: Reports as per HPI and Reports no additional constitutional complaints Mental Status Exam Mental Status Exam Patient Appearance: Appropriate Level of Consciousness: Awake, Appropriate and Alert Patient Behavior: Appropriate and Guarded Mood Description: Calm Affect Description: Calm Diagnostics Vital Signs (24Hr): Vital Signs - 24 hr 02/19/24 10:55 02/19/24 14:10 02/19/24 19:32 Temperature 98.9 F 98.2 F 99.5 F Pulse Rate 91 67 94 Respiratory Rate 16 20 14 Blood Pressure 122/63 123/75 132/64 Pulse Oximetry 98 98 98 Oxygen Delivery Method Room Air Room Air Room Air 02/19/24 22:35 02/20/24 03:29 02/20/24 07:51 Temperature 97.8 F 97.4 F 97.1 F Pulse Rate 66 70 72 Respiratory Rate 18 18 18 Blood Pressure 129/76 126/71 111/53 L Pulse Oximetry 100 97 98 Oxygen Delivery Method Room Air Room Air Room Air BMI result Body Mass Index 21.3 Labs 02/20/24 05:16 02/20/24 05:16 Labs: Laboratory Results - last 48 hr 02/18/24 02/19/24 02/19/24 16:42 01:54 01:55 WBC 8.3 RBC 4.60 Hgb 7.8 L Hct 27.3 L MCV 59.3 L MCH 17.0 L MCHC 28.6 L RDW 18.6 H Plt Count 389 MPV 8.8 L Immature Gran % (Auto) 0.2 Neut % (Auto) 63.1 Lymph % (Auto) 24.9 [place] % (Auto) 9.0 Eos % (Auto) 2.2 Baso % (Auto) 0.6 Lymph # (Auto) 2.1 [place] # (Auto) 0.7 Eos # (Auto) 0.2 Baso # (Auto) 0.1 Abs Immat Gran (auto) 0.02 Absolute Neuts (auto) 5.2 Absolute Nucleated RBC 0.000 Nucleated RBC % (auto) 0.0 Smear Tech's Comments ESR 16 Sodium 139 Potassium 2.9 L* D Chloride 104 Carbon Dioxide 25 Anion Gap 13 BUN 5 L Creatinine 0.62 Estim Creat Clear Calc 140.3 Estimated GFR > 60 Random Glucose 76 Lactic Acid Calcium 8.5 D Magnesium 1.9 Iron 7 L TIBC 287 % Saturation 2 L Unsat Iron Binding 280 Ferritin 10 Total Bilirubin 0.4 AST 31 ALT 19 Alkaline Phosphatase 62 C-Reactive Protein 9.96 H Total Protein 6.1 L Albumin 3.2 L Beta HCG, Quant Urine Opiates Screen POSITIVE H Ur Buprenorphine Scrn Not Detected Ur Oxycodone Screen Not Detected Urine Methadone Screen Not Detected Urine Fentanyl Screen POSITIVE H Ur Barbiturates Screen Not Detected Ur Phencyclidine Scrn Not Detected Ur Amphetamines Screen Not Detected U Benzodiazepines Scrn Not Detected Urine Cocaine Screen POSITIVE H U Marijuana (THC) Screen Not Detected Hep Bs Antigen Hep Bs Antibody Hep B Core Total Ab Hepatitis C Ab (EIA) HIV 1&2 Ab/P24 Ag 4thGn 02/19/24 02/19/24 02/19/24 01:56 12:12 12:46 WBC 10.1 RBC 5.12 Hgb 8.7 L Hct 30.5 L MCV 59.6 L MCH 17.0 L MCHC 28.5 L RDW 19.0 H Plt Count 350 MPV 9.1 L Immature Gran % (Auto) 1.2 H Neut % (Auto) 81.0 H Lymph % (Auto) 10.2 L [place] % (Auto) 6.9 Eos % (Auto) 0.3 Baso % (Auto) 0.4 Lymph # (Auto) 1.0 L [place] # (Auto) 0.7 Eos # (Auto) 0.0 Baso # (Auto) 0.0 Abs Immat Gran (auto) 0.12 H Absolute Neuts (auto) 8.2 Absolute Nucleated RBC 0.000 Nucleated RBC % (auto) 0.0 Smear Tech's Comments VERIFIED ESR Sodium 139 Potassium 4.2 D Chloride 107 Carbon Dioxide 26 Anion Gap 10 L BUN 4 L Creatinine 0.60 Estim Creat Clear Calc 144.9 Estimated GFR > 60 Random Glucose 109 Lactic Acid 0.6 Calcium 8.7 Magnesium 2.0 Iron TIBC % Saturation Unsat Iron Binding Ferritin Total Bilirubin AST ALT Alkaline Phosphatase C-Reactive Protein Total Protein Albumin Beta HCG, Quant < 2 Urine Opiates Screen Ur Buprenorphine Scrn Ur Oxycodone Screen Urine Methadone Screen Urine Fentanyl Screen Ur Barbiturates Screen Ur Phencyclidine Scrn Ur Amphetamines Screen U Benzodiazepines Scrn Urine Cocaine Screen U Marijuana (THC) Screen Hep Bs Antigen Negative Hep Bs Antibody NONREACTIVE Hep B Core Total Ab Nonreactive Hepatitis C Ab (EIA) Nonreactive HIV 1&2 Ab/P24 Ag 4thGn Nonreactive 02/20/24 05:16 WBC 8.0 RBC 4.57 Hgb 7.7 L Hct 27.3 L MCV 59.7 L MCH 16.8 L MCHC 28.2 L RDW 19.1 H Plt Count 441 H D MPV 9.2 L Immature Gran % (Auto) Neut % (Auto) Lymph % (Auto) [place] % (Auto) Eos % (Auto) Baso % (Auto) Lymph # (Auto) [place] # (Auto) Eos # (Auto) Baso # (Auto) Abs Immat Gran (auto) Absolute Neuts (auto) Absolute Nucleated RBC 0.000 Nucleated RBC % (auto) 0.0 Smear Tech's Comments ESR Sodium 142 Potassium 3.5 Chloride 109 H Carbon Dioxide 27 Anion Gap 10 L BUN 5 L Creatinine 0.58 Estim Creat Clear Calc 149.9 Estimated GFR > 60 Random Glucose 84 Lactic Acid Calcium 8.7 Magnesium 2.0 Iron TIBC % Saturation Unsat Iron Binding Ferritin Total Bilirubin 0.2 AST 19 ALT 14 Alkaline Phosphatase 56 C-Reactive Protein Total Protein 5.8 L Albumin 3.0 L Beta HCG, Quant Urine Opiates Screen Ur Buprenorphine Scrn Ur Oxycodone Screen Urine Methadone Screen Urine Fentanyl Screen Ur Barbiturates Screen Ur Phencyclidine Scrn Ur Amphetamines Screen U Benzodiazepines Scrn Urine Cocaine Screen U Marijuana (THC) Screen Hep Bs Antigen Hep Bs Antibody Hep B Core Total Ab Hepatitis C Ab (EIA) HIV 1&2 Ab/P24 Ag 4thGn Imaging Radiology Impressions: ITS Impressions Soft Tissue Neck CT 02/18/24 14:20 IMPRESSION: 1. Findings are compatible with severe right submandibular cellulitis without well-defined soft tissue abscess. 2. No signs of mandibular osteomyelitis or dental abscess could be seen. 3. Markedly enlarged right level 1B cervical lymph nodes. 4. Irregular lobulated mass like alveolar density with radiolucent tracts suggestive of air bronchograms is partially visualized in posterior right upper lobe apical segment extending to the posterior pleural border. Findings could represent focal pneumonia, mycetoma or lung tumor. Further evaluation with contrast-enhanced CT scan of chest is recommended. 5. Left maxillary sinus polypoid mucosal lesions. Medications Medications Current Medications Acetaminophen (Acetaminophen 325 Mg Tablet) 975 mg PO Q6H PRN PRN Reason: mild pain, headache or fever Levofloxacin (Levaquin) 750 mg in 150 mls @ 100 mls/hr IV Q24H [facility] Last Infusion: 02/20/24 10:21 Dose: Infused Vancomycin HCl 1,250 mg/ (Sodium Chloride) 250 mls @ 166.667 mls/hr IV Q12H [facility] Last Infusion: 02/20/24 07:18 Dose: Infused Metronidazole (Flagyl) 500 mg in 100 mls @ 100 mls/hr IV Q8H [facility] Last Infusion: 02/20/24 05:12 Dose: Infused Ibuprofen (Ibuprofen 400 Mg Tablet) 400 mg PO Q6H PRN PRN Reason: Pain, Severe (Pain Scale 7-10) Methadone HCl (Methadone Hcl 20 Mg/2 Ml Oral.Conc) 30 mg PO DAILY [facility] Last Admin: 02/20/24 08:41 Dose: 30 mg Nicotine Polacrilex (Nicotine Polacrilex 2 Mg Gum) 2 mg BUCCAL Q2H PRN PRN Reason: Nicotine Cravings Last Admin: 02/20/24 08:49 Dose: 2 mg Pharmacy Consult (Consult Rx Vancomycin Dosing) 1 each MISCELLANE DAILY PRN PRN Reason: Consult order Sodium Chloride (0.9 % Sodium Chloride Flush 3 Ml Syringe) 3 ml IVFLUSH QSHIFT [facility] Last Admin: 02/20/24 08:42 Dose: 3 ml Allergies Allergies Allergy/AdvReac Type Severity Reaction Status Date / Time morphine [MORPHINE] Allergy Mild SWELLING Verified 02/18/24 10:43 Penicillins [PCN] Allergy Mild SWELLING Verified 02/18/24 10:43 Assessment & Plan Assessment & Plan (1) Opioid use disorder: Status: Acute Code(s): F11.90 - Opioid use, unspecified, uncomplicated Assessment and Plan: * at time of this note patient has self initiated discharge * last dose letter provided, care package and risk reduction discussion * marketing team lead sent referral to [facility] Total time managing care of this patient today ____ minutes.
--- NOTE | 2024-02-20 13:57 | P.DS_ITS ---
DS: Providers Provider Date of Service: 02/20/24 Date of admission: 02/19/24 03:52 Date of discharge: 02/20/24 Primary care physician: Unknown Physician Consults: 02/19/24 04:41 Addiction Medicine Routine Consulting Provider: Addiction Covering Reason for consultation: Polysubstance abuse: Fentanyl and cocaine Has provider been notified: No 02/19/24 07:50 Consult to Infectious Diseases Routine Consulting Provider: [facility] [place] [facility] Reason for consultation: submandibular celluitis, lung mass- PNA vs mycetoma DS: Diagnosis Discharge Diagnosis (1) Opioid use disorder: Status: Acute (2) Cellulitis of submandibular region: Status: Acute (3) Lung mass: Status: Acute (4) Chronic anemia: Status: Acute (5) Hypokalemia: Status: Acute (6) Left against medical advice: Status: Acute DS: Summary Hospital Course Hospital Course: From the history and physical by the admitting hospitalist, Lacy Russelles, 02/19/24: Jenny Mcrae is a 23 years old woman with history of polysubstance abuse and homeless presents to the ED department complaining of right facial swelling over the last 2 days. She does complain of associated tenderness. She denies teeth pain. Patient would not answered my questions or examined her. She seems to be drowsy and annoyed by my questions. She told me she accepts to be admitted. According to ED provider the patient was initially refusing hospitalization and wanted to leave AMA. Last vital signs are normal (3:54 AM). Blood workup is remarkable for hyponatremia of 2.9. There is no leukocytosis or lactic acidosis. CRP is elevated. No other significant electrolyte imbalances noted. Renal function is normal as well as LFTs. Urine drug screen is positive for fentanyl, opiates and cocaine. Soft tissue neck without IV contrast showed findings compatible with severe right submandibular cellulitis without well-defined soft tissue abscess, no sign of mandibular osteomyelitis or dental abscess could be seen, marked enlarged right level 1B cervical lymph nodes and finding consistent with focal pneumonia, mycetoma or lung tumor in the right upper lobe. Chest CTA scan with IV contrast was recommended but the patient refused IV contrast. 23yo homeless F with polysubstance abuse disorder presenting with 2d of R face/neck swelling, found to have severe submandibular cellulitis but also found to have RUL mass submandibular cellulitis - Admitted to the medical-surgical unit and started on vancomycin + levofloxacin + metronidazole. Some mild improvement in swelling. Blood culture s negative @ 24h. Unfortunately, quite suddenly on 02/19, she decided to sign out of the hospital against medical advice despite my counseling on the risks of disability and . I prescribed oral levofloxacin and metronidazole to her for 7 days but explained that this is not optimal treatment given undiagnosed lung mass. RUL lobulated mass - differential includes focal PNA/abscess, mycetoma, and cancer. Unfortunately, she refused CT of the chest with IV contrast 3 separate times. hypoK - repleted DEVON - once bacterial infection under control, pt should be on iron repletion polysubstance abuse [fentanyl, cocaine] - Addiction Medicine consultated + started on methadone; pt will follow up as an outpatient - HBV/HCV/HIV negative Time Attestation Discharge Coordination Time (in mins): 35 Quality: Safe Use of Opioids Does Pt have an Active Cancer Diagnosis on the Problem List?: No Quality: Stroke Does the patient have a stroke diagnosis?: No Physical Exam Vital Signs: Vital Signs: Last Vital Signs Temp 97.1 F 02/20/24 07:51 Pulse 72 02/20/24 07:51 Resp 18 02/20/24 07:51 BP 111/53 L 02/20/24 07:51 Pulse Ox 98 02/20/24 07:51 O2 Del Method Room Air 02/20/24 07:51 BMI result Body Mass Index 21.3 see progress note for 02/20/24 DS: Data Data Completed and Pending Completed studies during hospitalization [Text1]: Laboratory Results WBC 8.0 X10*3/uL (4.8-10.8) 02/20/24 05:16 RBC 4.57 X10*6/uL (4.20-5.50) 02/20/24 05:16 Hgb 7.7 g/dl (12.0-16.0) L 02/20/24 05:16 Hct 27.3 % (37.0-47.0) L 02/20/24 05:16 MCV 59.7 fL (80.0-98.0) L 02/20/24 05:16 MCH 16.8 pg (27.0-33.0) L 02/20/24 05:16 MCHC 28.2 g/dl (31.0-35.0) L 02/20/24 05:16 RDW 19.1 % (11.0-16.0) H 02/20/24 05:16 Plt Count 441 X10*3/uL (160-400) H D 02/20/24 05:16 MPV 9.2 fL (9.4-12.3) L 02/20/24 05:16 Immature Gran % (Auto) 1.2 % (0.0-0.4) H 02/19/24 12:46 Neut % (Auto) 81.0 % (45-73) H 02/19/24 12:46 Lymph % (Auto) 10.2 % (20-40) L 02/19/24 12:46 [place] % (Auto) 6.9 % (2-11) 02/19/24 12:46 Eos % (Auto) 0.3 % (0-4) 02/19/24 12:46 Baso % (Auto) 0.4 % (0-2) 02/19/24 12:46 Lymph # (Auto) 1.0 X10*3/uL (1.2-4.9) L 02/19/24 12:46 [place] # (Auto) 0.7 X10*3/uL (0.1-1.2) 02/19/24 12:46 Eos # (Auto) 0.0 X10*3/uL (0.0-0.4) 02/19/24 12:46 Baso # (Auto) 0.0 X10*3/uL (0.0-0.2) 02/19/24 12:46 Abs Immat Gran (auto) 0.12 X10*3/uL (0.00-0.03) H 02/19/24 12:46 Absolute Neuts (auto) 8.2 x10*3/uL (2.0-8.3) 02/19/24 12:46 Absolute Nucleated RBC 0.000 X10*3/uL (0.0-0.012) 02/20/24 05:16 Nucleated RBC % (auto) 0.0 /100WBC (0.0-0.2) 02/20/24 05:16 Smear Tech's Comments VERIFIED 02/19/24 12:46 ESR 16 MM/HR (0-20) 02/19/24 01:55 Sodium 142 mmol/L (135-145) 02/20/24 05:16 Potassium 3.5 mmol/L (3.3-5.1) 02/20/24 05:16 Chloride 109 mmol/L (96-108) H 02/20/24 05:16 Carbon Dioxide 27 mmol/L (22-29) 02/20/24 05:16 Anion Gap 10 (12-20) L 02/20/24 05:16 BUN 5 mg/dL (9-16) L 02/20/24 05:16 Creatinine 0.58 mg/dL (0.5-1.4) 02/20/24 05:16 Estim Creat Clear Calc 149.9 02/20/24 05:16 Estimated GFR > 60 02/20/24 05:16 Random Glucose 84 mg/dL (60-115) 02/20/24 05:16 Lactic Acid 0.6 mmol/L (0.5-2.0) 02/19/24 01:56 Calcium 8.7 mg/dL (8.4-10.2) 02/20/24 05:16 Magnesium 2.0 mg/dL (1.6-2.6) 02/20/24 05:16 Iron 7 mcg/dL (30-160) L 02/19/24 01:54 TIBC 287 mcg/dL (228-428) 02/19/24 01:54 % Saturation 2 % (15-50) L 02/19/24 01:54 Unsat Iron Binding 280 ug/dL 02/19/24 01:54 Ferritin 10 ng/mL (10-122) 02/19/24 01:54 Total Bilirubin 0.2 mg/dL (0.0-1.0) 02/20/24 05:16 AST 19 U/L (5-31) 02/20/24 05:16 ALT 14 U/L (0-31) 02/20/24 05:16 Alkaline Phosphatase 56 U/L (39-117) 02/20/24 05:16 C-Reactive Protein 9.96 mg/dL (< or = 0.50) H 02/19/24 01:54 Total Protein 5.8 g/dL (6.5-8.0) L 02/20/24 05:16 Albumin 3.0 g/dL (3.5-5.0) L 02/20/24 05:16 Beta HCG, Quant < 2 mIU/mL 02/19/24 12:12 Urine Opiates Screen POSITIVE (Not Detect) H 02/18/24 16:42 Ur Buprenorphine Scrn Not Detected ng/mL (Not Detect) 02/18/24 16:42 Ur Oxycodone Screen Not Detected ng/mL (Not Detect) 02/18/24 16:42 Urine Methadone Screen Not Detected ng/mL (Not Detect) 02/18/24 16:42 Urine Fentanyl Screen POSITIVE (Not Detect) H 02/18/24 16:42 Ur Barbiturates Screen Not Detected (Not Detect) 02/18/24 16:42 Ur Phencyclidine Scrn Not Detected (Not Detect) 02/18/24 16:42 Ur Amphetamines Screen Not Detected (Not Detect) 02/18/24 16:42 U Benzodiazepines Scrn Not Detected (Not Detect) 02/18/24 16:42 Urine Cocaine Screen POSITIVE (Not Detect) H 02/18/24 16:42 U Marijuana (THC) Screen Not Detected (Not Detect) 02/18/24 16:42 Hep Bs Antigen Negative (Negative) 02/19/24 12:12 Hep Bs Antibody NONREACTIVE (Nonreactive) 02/19/24 12:12 Hep B Core Total Ab Nonreactive (Nonreactive) 02/19/24 12:12 Hepatitis C Ab (EIA) Nonreactive (Nonreactive) 02/19/24 12:12 HIV 1&2 Ab/P24 Ag 4thGn Nonreactive (Nonreactive) 02/19/24 12:12 Impressions Soft Tissue Neck CT 02/18/24 14:20 IMPRESSION: 1. Findings are compatible with severe right submandibular cellulitis without well-defined soft tissue abscess. 2. No signs of mandibular osteomyelitis or dental abscess could be seen. 3. Markedly enlarged right level 1B cervical lymph nodes. 4. Irregular lobulated mass like alveolar density with radiolucent tracts suggestive of air bronchograms is partially visualized in posterior right upper lobe apical segment extending to the posterior pleural border. Findings could represent focal pneumonia, mycetoma or lung tumor. Further evaluation with contrast-enhanced CT scan of chest is recommended. 5. Left maxillary sinus polypoid mucosal lesions. Discharge Plan Discharge Patient Disposition: Left Against Medical Advice Discharge Diagnosis: submandibular cellulitis lung mass opioid use disorder signed out against medical advice [facility]errals: [facility] [Outside] Physician,Unknown J [Primary Care Provider] - 2 days Discharge Medications: New ibuprofen 800 mg tablet 800 mg PO Q8H PRN (Reason: pain) Qty: 14 0RF acetaminophen [Tylenol Extra Strength] 500 mg tablet 500 mg PO Q6H PRN (Reason: fever or pain) Qty: 14 0RF nicotine (polacrilex) 2 mg Gum 2 mg buccal Q2H PRN (Reason: Nicotine Cravings) Qty: 100 0RF levofloxacin 750 mg tablet 750 mg PO DAILY Qty: 7 0RF metronidazole 500 mg tablet 500 mg PO TID Qty: 21 0RF Discharge Orders: Discharge Order (Routine); Ordered 02/20/24 Ordered By: Valerio Rasheed Stand Alone Forms: Against Medical Advice Print Language: Maori Care Plan Goals: cure infection diagnose lung mass avoid drug use Health Concerns: submandibular cellulitis lung mass opioid use disorder signed out against medical advice Plan of Treatment: you have a lung mass of unknown behavior/prognosis; you need a CT scan with contrast as soon as possible return to the hospital as soon as possible establish dental and primary care as soon as possible avoid drug use; consider going on methadone take antibiotics: levofloxacin 750 mg daily PLUS metronidazole 300 mg 3x a day Assessment: See Discharge Summary. Patient Instructions: Cellulitis (DC)
--- NOTE | 2024-02-20 14:39 | MHC.RECOVRN ---
Met with pt in 373 after pt decided to conduct self directed discharge. Pt is aware of risks of leaving the hospital, is not agreeable to stay for further testing and treatment. Pt states I just don't want to be here anymore. Pt denies withdrawal symptoms. Pt plans to return to [facility] for peer support. Pts referral has been sent to [facility], pt plans to follow up there tomorrow morning. Pt denies questions or concerns for t/w.
--- NOTE | 2024-02-20 15:24 | PC.NURSE ---
PT LEFT AMA. IV WAS REMOVED. RISKS EXPLAINED BY MYSELF AND DR ECHEVERRIA. PT STATES UNDERSTANDING.
--- NOTE | 2024-02-20 22:02 | P.CNID_ITS ---
History of Present Illness Data of Consult Service Date: 02/19/24 Requesting physician: Valerio Rasheed Primary Care Provider: Unknown Physician HPI Reason for consult: pneumonic infiltrate,redness mandible She presents with redness right mandible and cough for three dayss She has right lung mass She denies TB Review of Systems 2 Review of Systems: Yes all other systems are reviewed and are negative PMFSH Past Medical History Medical History Left against medical advice Chronic anemia Family History Family history: reviewed and not pertinent Social History Social History Household Members: None Housing: Homeless Do you presently have visiting nurse or other home services: No Unable to assess alcohol history related to: Refusing to respond Patient Tobacco Use Status: Current everyday Tobacco user Tobacco use type: Cigarette Cigarette Packs Per Day: 1 Cigarettes Per Day: 20.0 Second Hand Smoke Exposure: No Substance Use Type: Opiates service: No Meds Allergies Allergy/AdvReac Type Severity Reaction Status Date / Time morphine [MORPHINE] Allergy Mild SWELLING Verified 02/18/24 10:43 Penicillins [PCN] Allergy Mild SWELLING Verified 02/18/24 10:43 Physical Exam 2 Vital Signs: Vital Signs: Last Vital Signs Temp 97.1 F 02/20/24 07:51 Pulse 72 02/20/24 07:51 Resp 18 02/20/24 07:51 BP 111/53 L 02/20/24 07:51 Pulse Ox 98 02/20/24 07:51 O2 Del Method Room Air 02/20/24 07:51 BMI result Body Mass Index 21.3 HEENT: Other: reddened right mandible area Resp: Effort & Inspection: decreased respiratory effort Results Labs 02/20/24 05:16 02/20/24 05:16 Labs: Short CBC 02/20/24 Range/Units 05:16 WBC 8.0 (4.8-10.8) X10*3/uL Hgb 7.7 L (12.0-16.0) g/dl Hct 27.3 L (37.0-47.0) % Plt Count 441 H D (160-400) X10*3/uL BMP 02/20/24 05:16 Sodium 142 Potassium 3.5 Chloride 109 H Carbon Dioxide 27 BUN 5 L Creatinine 0.58 Calcium 8.7 Liver Function 02/20/24 Range/Units 05:16 Total Bilirubin 0.2 (0.0-1.0) mg/dL AST 19 (5-31) U/L ALT 14 (0-31) U/L Alkaline Phosphatase 56 (39-117) U/L Albumin 3.0 L (3.5-5.0) g/dL Microbiology Microbiology Results: Microbiology 02/19/24 02:08 Blood - Venous Blood Culture - Preliminary No growth after 24 hours. 02/19/24 01:54 Blood - Venous Blood Culture - Preliminary No growth after 24 hours. Assessment and Plan (1) Lung mass: Status: Acute (2) Cellulitis of submandibular region: Status: Acute Plan It is possible lung mass pneumonia or could be sarcoid or carcinoid. There is no TB history Can give po Levaquin for one week on discharge
== END 2024-02-20 14:49 | disposition left against medical advice (07) | DRG 158 ==
LOC: HO.ED 02-19 01:31 → HO.EDOVER 02-19 03:58 → HO.S3 02-19 20:31
PROVIDERS: Physician Assistant; Admitting Provider Internal Medicine; Emergency Provider Emergency Medicine Emergency Medical Services; Visit Provider Family Medicine
DX: K12.2 Cellulitis and abscess of mouth (principal); Z59.02 Unsheltered homelessness; R91.8 Other nonspecific abnormal finding of lung field; F17.210 Nicotine dependence, cigarettes, uncomplicated; F11.10 Opioid abuse, uncomplicated; F19.10 Other psychoactive substance abuse, uncomplicated; E87.6 Hypokalemia; Z71.6 Tobacco abuse counseling; D50.9 Iron deficiency anemia, unspecified
CPT/HCPCS: 36415; 70490; 80048; 80053; 80307; 82728; 83540; 83605; 83735; 84702; 85025; 85027; 85652; 86140; 86704; 86706; 86803; 87040; 87340; 87389; 99285; J0736; J1836; J1956; J3371

== ENCOUNTER → 2024-02-19 03:52 | Outpatient (BNV) | payer SELFPAY | PROVIDERS: Admitting Provider Internal Medicine; Emergency Provider Emergency Medicine Emergency Medical Services; Visit Provider Nurse Practitioner Psychiatric/Mental Health | DX: F11.90 Opioid use, unspecified, uncomplicated (principal) | CPT/HCPCS: 99221; 99232 ==

== ENCOUNTER → 2024-02-19 03:52 | Outpatient (BNV) | payer SELFPAY | PROVIDERS: Admitting Provider Internal Medicine; Emergency Provider Emergency Medicine Emergency Medical Services; Visit Provider Internal Medicine | DX: R91.8 Other nonspecific abnormal finding of lung field (principal); K12.2 Cellulitis and abscess of mouth | CPT/HCPCS: 99222 ==

== ENCOUNTER → 2024-02-19 03:52 | Outpatient (BNV) | payer SELFPAY | PROVIDERS: Admitting Provider Internal Medicine; Emergency Provider Emergency Medicine Emergency Medical Services; Visit Provider Internal Medicine | DX: K12.2 Cellulitis and abscess of mouth (principal); F11.90 Opioid use, unspecified, uncomplicated; R91.8 Other nonspecific abnormal finding of lung field; D64.9 Anemia, unspecified; E87.6 Hypokalemia; Z53.29 Procedure and treatment not carried out because of patient's decision for other reasons | CPT/HCPCS: 99222; 99239; 99499 ==

== ENCOUNTER 2024-02-25 22:05 | Emergency (ER) | payer SELFPAY ==
[2024-02-25 22:14] VITALS: BP 132/84; BP 146/92; PULSE 49; PULSE 80; RESP 22; TEMP 37.2; O2SAT 64; O2SAT 98; BMI 21.9
--- NOTE | 2024-02-25 22:15 | ECG_ITS ---
Test Reason : OD Blood Pressure : / mmHG Vent. Rate : 079 BPM Atrial Rate : 079 BPM P-R Int : 126 ms QRS Dur : 092 ms QT Int : 376 ms P-R-T Axes : 067 076 053 degrees QTc Int : 431 ms Normal sinus rhythm Normal ECG No previous ECGs available Referred By: Generic ED Physician Electronically Signed By:Meliton López
[2024-02-25 22:39] VITALS: BP 146/92; PULSE 84; RESP 24; O2SAT 100
[2024-02-25 23:04] LABS: Ethanol < 10 mg/dL
--- NOTE | 2024-02-25 23:38 | ED.OVERDOSE ---
HPI - Overdose General Chief Complaint: Overdose Stated Complaint: ?od Time Seen by Provider: 02/25/24 22:20 Source: patient and EMS Mode of arrival: EMS History of Present Illness ED Provider: Dr Galvan [facility] Narrative: 23-year-old female who is brought in by EMS for evaluation after overdose on fentanyl, bystander called EMS services and patient was found to be incoherent with oxygenation of 64% on room air, she was provided with Narcan but refused oxygen in route to the emergency room. Patient denies SI/HI, she declines any detox services at this time. Related Data Previous Rx's ?Medication ?Instructions ?Recorded acetaminophen 500 mg tablet 500 mg PO Q6H PRN fever or pain 02/18/24 (Tylenol Extra Strength) #14 tabs ibuprofen 800 mg tablet 800 mg PO Q8H PRN pain #14 tabs 02/18/24 Allergies Allergy/AdvReac Type Severity Reaction Status Date / Time morphine [MORPHINE] Allergy Mild SWELLING Verified 02/25/24 22:18 Penicillins [PCN] Allergy Mild SWELLING Verified 02/25/24 22:18 Review of Systems Review of Systems: Pertinent positives and negatives as stated in HPI [facility] Past Medical History Source: nursing notes reviewed Medical History Left against medical advice Chronic anemia Social History Social History Household Members: None Housing: Homeless Do you presently have visiting nurse or other home services: No Unable to assess alcohol history related to: Refusing to respond Alcohol intake: current Patient Tobacco Use Status: Current everyday Tobacco user Tobacco use type: Cigarette Cigarette Packs Per Day: 1 Cigarettes Per Day: 20.0 Smoked in Last 30 Days: Yes Second Hand Smoke Exposure: No Use of substances other than those prescribed or required for medical reasons: Yes Substance Use Type: Crack/Cocaine and Heroin Advance Directives: No Advance Directives Information Provided: No Do you have a plan to hurt others: No Plan Patient : No service: No Physical Exam Vital Signs: Vital Signs: Last Vital Signs Temp 98.3 F 02/26/24 05:52 Pulse 76 02/26/24 05:52 Resp 18 02/26/24 05:52 BP 126/78 02/26/24 05:52 Pulse Ox 99 02/26/24 05:52 O2 Del Method Room Air 02/26/24 05:52 BMI result Body Mass Index 21.9 VITAL SIGNS: Reviewed. GENERAL: Well developed, well nourished, in no acute distress. HEAD: Normocephalic/atraumatic EYES: PERRLA, EOMI EARS: Ext canals without abnormality NOSE: Nares patent bilateral OROPHARYNX: no oral lesions noted, posterior pharynx clear NECK: Supple, no adenopathy LUNGS: Normal breath sounds. No adventitious sounds or accessory muscle use. SpO2<100> CARDIOVASCULAR: Regular rate and rhythm without noted murmurs ABDOMEN: Soft, non-tender, non-distended with bowel sounds. MUSCULOSKELETAL: No tenderness, deformities, or effusions noted on gross inspection. EXTREMITIES: No cyanosis, clubbing or edema. SKIN: Inspection of the skin reveals no rashes NEUROLOGIC: Alert and oriented x 4. Strength and sensation to light touch were grossly intact x 4, cranial nerves 2-12 are grossly intact. Medical Decision Making Medical Decision Making MDM Narrative: 23-year-old female with history and clinical presentation of overdose and polysubstance use disorder. She denies any SI/HI and is declining detox services at this time but after observation for 2 hours she will be discharged with a list of outpatient resources and home Narcan. Patient is tolerating oral intake and has ambulated with a steady gait and is otherwise stable for discharge to home. Differential Diagnosis Differential Diagnoses: The differential diagnosis associated with the presentation includes Please see the discussion above Admission/Observation Consideration of admission/observation: Escalation of care including admission/observation considered Please see the discussion above Lab Data Labs: Lab Results 02/25/24 Range/Units 22:45 Ethyl Alcohol < 10 mg/dL Independent Interpretation I performed an independent interpretation of an: EKG Interpretation: Normal sinus rhythm, HR-79, no STEMI, FL/QRS/QTC is within normal limits. External Record Review External record reviewed: Inpatient record, Outpatient record and Prior outpatient labs Social Determinants Patient?s care significantly limited by Social Determinants of Health including: Alcoholism and drug addiction in family Critical Care Time Critical Care Time Critical Care Time: Yes Total Critical Care Time: 45 Attestation: I personally attest to this time spent taking care of the patient. Discharge Plan Discharge Clinical Impression: Polysubstance use disorder, Overdose Patient Disposition: Home, Self-Care Instructions: Polysubstance Abuse (ED), Adult Overdose (ED) Additional Instructions: You have been provided with home Narcan as well as a list of outpatient resources for detox. Do not hesitate to return to the emergency room for any worsening of symptoms. Prescriptions: No Action ibuprofen 800 mg tablet 800 mg PO Q8H PRN (Reason: pain) Qty: 14 0RF acetaminophen [Tylenol Extra Strength] 500 mg tablet 500 mg PO Q6H PRN (Reason: fever or pain) Qty: 14 0RF Print Language: Faroese
--- NOTE | 2024-02-26 02:43 | PC.NURSE ---
Patient ambulated to the restroom with 1 assist.
[2024-02-26 05:52] VITALS: BP 126/78; PULSE 76; RESP 18; TEMP 36.8; O2SAT 99
--- NOTE | 2024-02-26 05:57 | PC.NURSE ---
Patient is awake, oriented to self, place, unable to state current date. Patient denies SI/HI. VSS. Patient endorses no pain at this time. Patient requested a turkey sandwich, cheese stick, and renee naz, provided and tolerated well. Call ndiaye placed in patient's reach, plan of care ongoing.
--- NOTE | 2024-02-26 06:33 | PC.NURSE ---
Patient ambulated dean way distance with a steady gait.
[2024-02-26] MEDS: Naloxone HCl Nasal TAKE HOME 4 MG SPRAY 8 MG NOSTRILALT (06:50)
[2024-02-26 06:51] VITALS: BP 124/73; PULSE 79; RESP 14; TEMP 36.7; O2SAT 98
== END 2024-02-26 06:54 | disposition home or self-care (01) ==
PROVIDERS: Emergency Provider Student in an Organized Health Care Education/Training Program
DX: T40.411A Poisoning by fentanyl or fentanyl analogs, accidental (unintentional), initial encounter (principal); Y92.9 Unspecified place or not applicable; F17.210 Nicotine dependence, cigarettes, uncomplicated; F11.10 Opioid abuse, uncomplicated; F14.10 Cocaine abuse, uncomplicated
CPT/HCPCS: 36415; 80307; 93005; 99284; 99285

== ENCOUNTER → 2024-02-25 22:15 | Outpatient (BNV) | payer SELFPAY | PROVIDERS: Emergency Provider Student in an Organized Health Care Education/Training Program; Visit Provider Internal Medicine Cardiovascular Disease | DX: F11.90 Opioid use, unspecified, uncomplicated (principal) | CPT/HCPCS: 93010 ==

== ENCOUNTER 2024-04-08 14:16 | Emergency (ER) | payer OTHER, SELFPAY ==
[2024-04-08 14:17] VITALS: BP 114/72; BP 116/59; PULSE 78; PULSE 86; RESP 22; TEMP 36.4; O2SAT 97; O2SAT 99; BMI 18.2
--- NOTE | 2024-04-08 14:21 | ED.PSYCH ---
HPI - Psych General Chief Complaint: Psychiatric Symptoms Stated Complaint: IN CUSTODY, SI ON SECTION 12 PER EMS Time Seen by Provider: 04/08/24 14:21 Source: patient and EMS Mode of arrival: EMS Limitations: no limitations History of Present Illness ED Provider: Nicole Wheatley PA-C HPI Narrative: 23-year-old female with history of polysubstance use disorder, history of recent overdose, chronic anemia, history of right mandibular cellulitis admitted here in February, history of right lung mass presents to the ER for evaluation of transient suicidal ideation while she was at court today. She states her mother recently committed suicide 1 week ago and she has been depressed since. She was at court today when she got very overwhelmed and made suicidal statements. She states the court told her that she could either go to [facility] or get sectioned. She admits to ongoing heroin use. She arrives to the ER very restless. She is not suicidal or homicidal. complaint: suicidal ideation and substance abuse History of same: Yes Exacerbating factors: drug use Context: recent drug abuse and significant life stressor Associated symptoms: denies other symptoms Related Data Previous Rx's ?Medication ?Instructions ?Recorded acetaminophen 500 mg tablet 500 mg PO Q6H PRN fever or pain 02/18/24 (Tylenol Extra Strength) #14 tabs ibuprofen 800 mg tablet 800 mg PO Q8H PRN pain #14 tabs 02/18/24 Allergies Allergy/AdvReac Type Severity Reaction Status Date / Time morphine [MORPHINE] Allergy Mild SWELLING Verified 04/08/24 14:41 Penicillins [PCN] Allergy Mild SWELLING Verified 04/08/24 14:41 Review of Systems Review of Systems: Yes all other systems are reviewed and are negative [facility] Past Medical History Medical History Left against medical advice Chronic anemia Social History Social History Household Members: None Housing: Homeless Do you presently have visiting nurse or other home services: No Unable to assess alcohol history related to: Refusing to respond Alcohol intake: current Patient Tobacco Use Status: Current everyday Tobacco user Tobacco use type: Cigarette Cigarette Packs Per Day: 1 Cigarettes Per Day: 20.0 Smoked in Last 30 Days: No Second Hand Smoke Exposure: No Use of substances other than those prescribed or required for medical reasons: No Substance Use Type: Crack/Cocaine and Heroin Patient : No service: No Physical Exam Vital Signs: Vital Signs: Last Vital Signs Temp 97.5 F 04/08/24 14:33 Pulse 86 04/08/24 14:33 Resp 22 H 04/08/24 14:33 BP 116/59 L 04/08/24 14:33 Pulse Ox 97 04/08/24 14:33 O2 Del Method Room Air 04/08/24 14:33 BMI result Body Mass Index 18.2 Appearance: Alert. Oriented X3. Restless, fidgety, poorly kempt Head: normocephalic, atraumatic. Eyes: Pupils equal, round and reactive to light. ENT: Pharynx normal. No tonsillar swelling or exudate. Neck: Normal inspection. Neck supple. No evidence of mandibular swelling or erythema CVS: Normal heart rate and rhythm. Pulses normal. Respiratory: No respiratory distress. Breath sounds normal. Abdomen: Soft and nontender. +BS x4 Skin: Skin warm and dry. Normal skin color. Normal skin turgor. No rashes. Extremities: No lower extremity edema. No joint swelling. Neuro/psych: Oriented X 3. No motor deficit. No sensory deficit. CN II-XII intact. Normal speech and cognition. Steady gait. Makes eye contact and is conversant however she is extremely restless and can not sit still. Medications Administered Discontinued Medications Generic Name Dose Route Start Last Admin Trade Name Freq PRN Reason Stop Dose Admin Hydroxyzine HCl 50 mg 04/08/24 14:58 04/08/24 15:13 Hydroxyzine Hcl 50 Mg Tablet PO 04/08/24 14:59 50 mg ONCE ONE Administration Olanzapine 5 mg 04/08/24 15:40 04/08/24 15:42 Olanzapine 5 Mg Tablet PO 04/08/24 15:41 5 mg ONCE ONE Administration Medical Decision Making Medical Decision Making MDM Narrative: 23-year-old female presents to the ER from court on a section 12A for reports of suicidal ideation. She states she made those statements because she was very overwhelmed. Her mother recently committed suicide. She rides the ER denying any suicidal ideations or homicidal ideations at this time. She reports depression and anxiety. Lab workup pending for medical clearance and then will get her seen by the care team and possibly Addiction Medicine. Differential Diagnosis Differential Diagnoses: The differential diagnosis associated with the presentation includes substance induced mood disorder, acute psychosis, schizophrenia, schizoaffective disorder, PTSD, bipolar disorder, major depression with psychotic features Independent Historian Clinical information obtained from an independent historian. History obtained from or confirmed by: EMS External Record Review External record reviewed: Inpatient record, Outpatient record, Prior outpatient labs and Prior outpatient radiology Prescription Management I considered prescription management with: Other (Antipsychotic, antidepressant) Chronic Conditions Patient?s care impacted by: Other (Polysubstance use disorder) Social Determinants Patient?s care significantly limited by Social Determinants of Health including: Problems related to primary support group and Other Social Determinant of Health Critical Care Time Critical Care Time Critical Care Time: No Discharge Plan Discharge Clinical Impression: Acute anxiety Patient Disposition: Still a Patient Prescriptions: No Action ibuprofen 800 mg tablet 800 mg PO Q8H PRN (Reason: pain) Qty: 14 0RF acetaminophen [Tylenol Extra Strength] 500 mg tablet 500 mg PO Q6H PRN (Reason: fever or pain) Qty: 14 0RF Interventions: Sawyer-Suicide Risk Severity Scale Last Done: 04/08/24 14:47 Print Language: Norwegian
[2024-04-08 14:33] VITALS: BP 116/59; PULSE 86; RESP 22; TEMP 36.4; O2SAT 97
--- NOTE | 2024-04-08 15:01 | MHC.CARE ---
1400 Message picked up from Una Gonzales ([facility]) with expect information--they are sending this patient by ambulance on Section 12A for evaluation. By report, had been crying and screaming uncontrollably for several hours, erratic behavior, disrobing [phone] if more information is needed.
[2024-04-08] MEDS: hydrOXYzine HCL 50 MG TABLET PO (15:13)
[2024-04-08] MEDS: OLANZapine 5 MG TABLET PO (15:42)
--- NOTE | 2024-04-08 15:47 | PC.NURSE ---
Patient's behavior is erratic, she was observed wiping dust off windowsill and licking her hand. She was also observed licking the wall. Patient was then seen thrashing around on her bed in BH 6. When approached patient states she does not like the texture of her blanket. However, pt then laid back down with blanket. This RN attempted to draw pts blood however, patient was thrashing around and pulling her arm away. For staff and patient safety, blood draw will be delayed. Patient administered medications per MAR.
[2024-04-08 17:22] VITALS: BP 126/53; PULSE 71; RESP 16; TEMP 36.8; O2SAT 99
--- NOTE | 2024-04-08 17:49 | PC.NURSE ---
Attempted to draw patient's blood again, patient refusing, panicking and pulling her arm away.
--- NOTE | 2024-04-08 17:50 | PC.NURSE ---
patient reports she takes no medications
[2024-04-08 18:23] LABS: Appearance Urine Clear; Color Urine Yellow; Glucose Urine UA Negative (Negative); Leukocyte Esterase Urine Negative (Negative); Nitrite Urine Negative (Negative); Urine Blood Negative (Negative); Urine Ketones Negative (Negative); Urine Protein Negative (Neg-Trace)
[2024-04-08 18:32] LABS: Amphetamine Screen Urine Not Detected (Not Detect); Barbiturates, Urine Not Detected (Not Detect); Benzodiazepines Screen Urine POSITIVE (Not Detect); Buprenorphine Scr Not Detected (Not Detect); Cannabinoid Screen Urine Not Detected (Not Detect); Cocaine Screen Urine POSITIVE (Not Detect); Fentanyl, urine POSITIVE (Not Detect); Methadone Screen, Urine Not Detected (Not Detect); Opiate Screen Urine POSITIVE (Not Detect); Oxycodone Screen Urine Not Detected (Not Detect); Phencyclidine Screen Urine Not Detected (Not Detect)
--- NOTE | 2024-04-08 20:05 | MHC.CARE ---
T/w completed collateral call with pt's father Bartolome Dumont, who was listed as emergency contact in pt's chart. Pt's father shared information regarding client's mental health and PERRIN hx. Father reports he adopted pt when she was a baby, at the age of 9, her adoptive mother and he re- a year later. This adjustment was difficult for pt who began being rebellious and self-harm via cutting. Father reports pt was in mental health counseling throughout high school. Hx of learning disability and problems in school. Pt is unemployed - did complete education in culinary but not interested in finding work. Has been homeless/transient for several years since moving out. Has a 3-year-old son who was removed from her care and is living with paternal relative, mom has no contact with the child. Pt was granted probation on Friday by the juvenile court judge, arrested for possession of heroin/crack cocaine. Father reports hx of infections/MRSA- pt was recently seen in the ED due to infection. Family hx of alcohol use and incarceration. Pt's father reports I only hear from her when she needs help. Pt's father would like to see pt achieve some stability in her life. Pt's father unable to recall name of pharmacy but maybe [facility] and noted no current medications that he is aware of. No current outpatient providers that pt's father is aware of either. Pt's father noted pt was recently living in a place where she had to do daily drug tests but not sure of name/agency.
--- NOTE | 2024-04-08 20:12 | MHC.CARE ---
T/W completed consult with [place] [employer] Records Dept. Pt was brought into court today on Open Warrants, unable to access information related to original charges.
[2024-04-09 06:16] LABS: Basophils Absolute Auto 0.1 X10*3/uL (0.0-0.2); Eosinophils Absolute Auto 0.5 X10*3/uL (0.0-0.4); Eosinophils Percent Auto 6.6 % (0-4); Hematocrit 35.8 % (37.0-47.0); Imm Gran Abs Auto 0.01 X10*3/uL (0.00-0.03); Imm Gran Pct Auto 0.1 % (0.0-0.4); Lymphocytes Absolute Auto 3.2 X10*3/uL (1.2-4.9); Lymphocytes Percent Auto 41.7 % (20-40); MANUAL DIFF FLAG NO; Mean Corpuscular HGB Conc 27.9 g/dl (31.0-35.0); Mean Corpuscular Hemoglobin 17.7 pg (27.0-33.0); Mean Platelet Volume 8.2 fL (9.4-12.3); Monocytes Absolute Auto 0.6 X10*3/uL (0.1-1.2); Monocytes Percent Auto 7.3 % (2-11); Neutrophils Absolute Auto 3.3 x10*3/uL (2.0-8.3); Neutrophils Percent Auto 43.3 % (45-73); Platelet Count 374 X10*3/uL (160-400); Red Blood Count 5.65 X10*6/uL (4.20-5.50); Red Cell Distribution Width 22.2 % (11.0-16.0); White Blood Count 7.7 X10*3/uL (4.8-10.8)
[2024-04-09 06:18] LABS: Mean Corpuscular Volume 63.4 fL (80.0-98.0)
[2024-04-09 06:23] VITALS: BP 112/67; PULSE 58; TEMP 36.5; O2SAT 99
[2024-04-09 06:30] LABS: Alanine Aminotransferase 12 U/L (0-31); Albumin Level 3.8 g/dL (3.5-5.0); Alkaline Phosphatase 59 U/L (39-117); Anion Gap 10 (12-20); Aspartate Amino Transferase 20 U/L (5-31); Bilirubin Total 0.1 mg/dL (0.0-1.0); Blood Urea Nitrogen 11 mg/dL (9-16); Carbon Dioxide 27 mmol/L (22-29); Chloride 107 mmol/L (96-108); Creatinine Clr Calc Pharmacy 114.7; Estimated Glomerular Filt Rate > 60; Glucose Random 102 mg/dL (60-115); Potassium 4.4 mmol/L (3.3-5.1); Sodium 140 mmol/L (135-145); Total Protein 6.6 g/dL (6.5-8.0)
[2024-04-09 06:34] LABS: Ethanol < 10 mg/dL
--- NOTE | 2024-04-09 06:58 | PC.NURSE ---
Patient slept through the night, no distress observed/reported, compliant with blood draw after refusing few time yesterday, care consult ordered/pending evaluation, VSS, will continue to monitor
--- NOTE | 2024-04-09 07:21 | PC.NURSE ---
Assumed care of patient at 0645, patient appears to be sleeping, respirations even and unlabored, no apparent distress noted. Continue plan of care for CARE team pranav
--- NOTE | 2024-04-09 08:15 | PHA.MEDREC ---
Pharmacy Consult ? Medication Reconciliation Pharmacy has completed the medication reconciliation. Review med rec done by nursing. Confirmed patient isn't taking any home medications with Nurse Jing Wilhelm.
--- NOTE | 2024-04-09 08:28 | PC.NURSE ---
Patient found to have a coffee cup full of urine in her room on the floor. Patient educated that she cannot use a cup to urinate in and educated her where the bathroom is and to utilize it instead of the cup. Patient verbalizes understanding
--- NOTE | 2024-04-09 12:05 | PC.NURSE ---
Pt. to be discharged w/ lyft, currently changing into clothes.
[2024-04-09 12:09] VITALS: BP 112/67; PULSE 58; RESP 16; TEMP 36.5; O2SAT 99
== END 2024-04-09 12:09 | disposition home or self-care (01) ==
PROVIDERS: Emergency Provider Emergency Medicine
DX: F41.9 Anxiety disorder, unspecified (principal); Z72.89 Other problems related to lifestyle; Z63.4 Disappearance and death of family member; F19.10 Other psychoactive substance abuse, uncomplicated; F17.210 Nicotine dependence, cigarettes, uncomplicated; Z79.899 Other long term (current) drug therapy
CPT/HCPCS: 36415; 80053; 80307; 81003; 85025; 99285; S9485

== ENCOUNTER 2025-02-26 19:40 | Emergency (ER) | payer OTHER, SELFPAY ==
[2025-02-26 19:41] VITALS: RESP 22; BMI 29.1
[2025-02-26 19:53] VITALS: BP 145/84; PULSE 120; RESP 20; TEMP 37.8; O2SAT 96
--- NOTE | 2025-02-26 20:02 | PC.NURSE ---
heart tones obtained at this time, hr 145
--- NOTE | 2025-02-26 20:04 | PC.NURSE ---
pt assisted in changing into hospital gown at this time, pt boyfriend at bedside. pt tachy 120-140bpm, and pt is restless.
--- NOTE | 2025-02-26 20:14 | ED_ITS ---
HPI - Abdominal Pain General Chief Complaint: ETOH/Substance Use Stated Complaint: dehydrated edc 03/02 Time Seen by Provider: 02/26/25 19:48 Source: patient and other (Significant other, Greyson) Mode of arrival: ambulatory Limitations: no limitations History of Present Illness ED Provider: Dr. Bebeto Umana HPI narrative: 24-year-old female JUNIOR 03/02/2025 history of polysubstance use disorder who presents emergency department for evaluation of agitation after using intranasal heroin and smoking crack cocaine. According to her significant other, Greyson, they are at the [employer] [facility] and had nothing to eat or drink. After using the above drugs the patient became agitated and had difficulty walking therefore she came to the emergency department for evaluation. The patient states that she is having pressure in her vaginal area but does not believe that she is having contractions. She told me that the baby is in ?sideways? and she was supposed to go to [facility] and they were going to try to reposition the baby but she missed this appointment. She has not had any vaginal bleeding or vaginal discharge. Patient states she takes methadone 80 mg a day but missed her methadone days today, she went to the clinic late. Related Data Home Medications ?Medication ?Instructions ?Recorded ?Confirmed No Known Home Meds 04/08/24 04/08/24 Allergies Allergy/AdvReac Type Severity Reaction Status Date / Time morphine (MORPHINE) Allergy Mild SWELLING Verified 02/26/25 19:48 Penicillins (PCN) Allergy Mild SWELLING Verified 02/26/25 19:48 Review of Systems Review of Systems Yes all other systems are reviewed and are negative PMFSH Past Medical History Medical History Left against medical advice Chronic anemia Social History Social History Household Members: None Housing: Homeless Do you presently have visiting nurse or other home services: No Unable to assess alcohol history related to: Refusing to respond Alcohol intake: current Patient Tobacco Use Status: Current everyday Tobacco user Tobacco use type: Cigarette Cigarette Packs Per Day: 1 Cigarettes Per Day: 20.0 Second Hand Smoke Exposure: No Substance Use Type: Crack/Cocaine and Heroin Advance Directives: No Advance Directives Information Provided: Yes service: No Physical Exam ED Vital Signs: Vital Signs - 24 hr 02/26/25 19:41 02/26/25 19:53 Temperature 100.1 F Pulse Rate 120 H Respiratory Rate 22 H 20 Blood Pressure 145/84 H Pulse Oximetry 96 Oxygen Delivery Method Room Air BMI result Body Mass Index 29.1 Vital signs revealed elevated temperature of 100.1 degrees F orally, blood press ure elevated 145/84, heart rate elevated 120, respiratory rate elevated 22 Exam: General: Awake, alert , very agitated, moving her arms and legs uncontrollably, unable to stay still Head: Normocephalic, atraumatic EENT: PERRL, Lids normal, sclera normal, conjunctiva normal, nose normal , ears normal, throat without erythema or exudates Neck: Supple, no adenopathy Lung: breath sounds symmetric, no wheezing, rales or rhonchi Chest: symmetric movement, nontender Heart: regular rate and rhythm, normal S1, S2 no murmurs or rubs Abdomen: Gravid uterus, no tenderness Behavioral Psychologist: External: No lesions Speculum: Cervical os was visualized, it is not open, no parts noted, no vaginal discharge Back: no vertebral tenderness, no CVAT Extremities: no deformities, moves all extremities symmetrically Neuro: Awake, agitated, normal symmetric strength Psych: Agitated but cooperative Medical Decision Making Medical Decision Making MDM Narrative: 24-year-old female JUNIOR 03/02/2025 history of polysubstance use disorder on methadone 80 mg daily, missed today's dose who presents emergency department for evaluation of agitation after using intranasal heroin and smoking crack cocaine. The patient was at the [employer] [facility] and had nothing to eat or drink. After using the above drugs, the patient became agitated and had difficulty walking therefore her significant other brought her to the emergency department for evaluation. The patient states that she is having pressure in her vaginal area but does not believe that she is having contractions. She told me that the baby is in ?sideways? and she was supposed to go to [facility] and they were going to try to reposition the baby but she missed this appointment. She has not had any vaginal bleeding or vaginal discharge. Vital signs revealed elevations in her blood pressure 145/84, respiratory rate of 22 and pulse of 120. heart tones were 145. Physical examination revealed no abdominal tenderness, speculum exam revealed a closed cervical os. Differential diagnosis: ?Includes but is not limited to active labor, early labor, preeclampsia, adverse reaction to illicit drugs, including but not limited to cocaine, heroin, fentanyl, PCP, anemia, electrolyte abnormalities Course: 20:50 My independent interpretation patient's laboratory evaluation is as follows: WBC elevated 11,900. Microcytic anemia with an H&H of 12.2 and 34.4 with an MCV of 78.4. Chloride high 110. Bicarb low 20. BUN and creatinine were normal. LFTs were normal except for an elevated AST of 45. Alk-phos elevated 171. Lipase was normal. Ethanol level below detectable limits. At this time I believe the patient's agitation is secondary to an adverse reaction due to illicit drug use most likely PCP. Drug screen urine is pending collection of urine. Patient's abnormal vital signs and most likely secondary to her drug use however it is possible that she may be withdrawing since she missed her methadone dose today. Patient states she takes 80 mg of methadone daily and ordered 40 mg orally to see if this improves your agitation. Bedside ultrasound suggests that the patient's head is in the pelvic physician in his pointing down. I did present this patient to the [facility] covering OBGYN physician, Dr. Becky Romero and she accepted the patient as an ED to [place] [id number] transfer, we do have a bed assignment for the patient. The accepting attending is Dr. Rankin. Patient will be transferred by ALS ambulance. Admission/Observation Consideration of admission/observation: Escalation of care including admission/observation considered (Yes) Chronic Conditions Patient?s care impacted by: Other Polysubstance use disorder Critical Care Time Critical Care Time Critical Care Time: Yes Total Critical Care Time: 45 Attestation: Critical Care: The patient was critically ill with a high probability of imminent or life threatening deterioration. I spent greater than 30 minutes of discontinuous time evaluating the patient,delivering critical care at the bedside, discussing and evaluating pertinent data with consultants. Critical care time does not include time spent performing separately billable procedures or teaching. Total time spent performing critical care was 45 minutes. Discharge Plan Discharge Clinical Impression: Third trimester , Acute drug intoxication with delirium, Polysubstance use disorder, Methadone dependence Patient Disposition: [facility] Transfer Details: [facility], accepting attending is Dr. Rankin Prescriptions: No Action No Known Home Meds Print Language: Salvadorean
[2025-02-26 20:28] LABS: MANUAL DIFF FLAG NO
[2025-02-26 20:29] LABS: Basophils Absolute Auto 0.1 X10*3/uL (0.0-0.2); Basophils Percent Auto 0.6 % (0-2); Eosinophils Absolute Auto 0.4 X10*3/uL (0.0-0.4); Eosinophils Percent Auto 3.6 % (0-4); Hematocrit 34.4 % (37.0-47.0); Hemoglobin 12.2 g/dl (12.0-16.0); Imm Gran Abs Auto 0.02 X10*3/uL (0.00-0.03); Imm Gran Pct Auto 0.2 % (0.0-0.4); Lymphocytes Absolute Auto 2.3 X10*3/uL (1.2-4.9); Lymphocytes Percent Auto 19.2 % (20-40); Mean Corpuscular HGB Conc 35.5 g/dl (31.0-35.0); Mean Corpuscular Hemoglobin 27.8 pg (27.0-33.0); Mean Corpuscular Volume 78.4 fL (80.0-98.0); Mean Platelet Volume 8.5 fL (9.4-12.3); Monocytes Absolute Auto 1.1 X10*3/uL (0.1-1.2); Monocytes Percent Auto 9.6 % (2-11); Neutrophils Absolute Auto 7.9 x10*3/uL (2.0-8.3); Neutrophils Percent Auto 66.8 % (45-73); Platelet Count 226 X10*3/uL (160-400); Red Blood Count 4.39 X10*6/uL (4.20-5.50); Red Cell Distribution Width 15.3 % (11.0-16.0); White Blood Count 11.9 X10*3/uL (4.8-10.8)
[2025-02-26] MEDS: methADONE HCl 20 MG/2 ML ORAL.CONC 40 MG PO (20:38)
[2025-02-26 20:46] LABS: Lactic Acid 0.5 mmol/L (0.5-2.0)
--- NOTE | 2025-02-26 20:46 | PC.NURSE ---
report given to Ashlee RODRÍGUEZ at [facility]
[2025-02-26 20:47] LABS: Alanine Aminotransferase 20 U/L (0-31); Albumin Level 3.5 g/dL (3.5-5.0); Alkaline Phosphatase 171 U/L (39-117); Anion Gap 15 (12-20); Aspartate Amino Transferase 45 U/L (5-31); Bilirubin Direct 0.2 mg/dL (0.0-0.5); Bilirubin Total 0.4 mg/dL (0.0-1.0); Blood Urea Nitrogen 9 mg/dL (9-16); Calcium 8.9 mg/dL (8.4-10.2); Carbon Dioxide 20 mmol/L (22-29); Chloride 110 mmol/L (96-108); Creatinine Clr Calc Pharmacy 137.7; Estimated Glomerular Filt Rate > 60; Ethanol < 10 mg/dL; Glucose Random 69 mg/dL (60-115); Lipase 19 U/L (8-78); Magnesium 1.7 mg/dL (1.6-2.6); Potassium 3.7 mmol/L (3.3-5.1); Sodium 141 mmol/L (135-145); Total Protein 6.5 g/dL (6.5-8.0)
[2025-02-26 21:12] VITALS: BP 113/51; PULSE 95; RESP 20; TEMP 37.3; O2SAT 95
--- NOTE | 2025-02-26 21:16 | PC.NURSE ---
ems at bedside for transport and report, vss.
[2025-02-26 21:28] VITALS: BP 113/51; PULSE 95; RESP 20; TEMP 37.3; O2SAT 95
--- NOTE | 2025-02-27 23:21 | PC.NURSE ---
Process Control Programmer received results of positive blood cultures, reported to MD Daniel and advised patient would be requiring further treatment. Upon further eval, pt identified as being transferred to [facility] earlier this evening. RN calling [facility] who reports the patient is not there, according to [facility] switchboard the patient is on the L&D Pod C. RN spoke with staff from that floor to make them aware and information was relayed to ANNE Hodges (pt's primary nurse) and micro information will be faxed per request to [phone]
== END 2025-02-26 21:29 | disposition short-term general hospital (02) ==
PROVIDERS: Emergency Provider Emergency Medicine Emergency Medical Services
DX: O99.323 Drug use complicating pregnancy, third trimester (principal); F19.121 Other psychoactive substance abuse with intoxication delirium; F11.20 Opioid dependence, uncomplicated; O26.893 Other specified pregnancy related conditions, third trimester; R45.1 Restlessness and agitation; R50.9 Fever, unspecified; O99.333 Smoking (tobacco) complicating pregnancy, third trimester; Z3A.00 Weeks of gestation of pregnancy not specified
CPT/HCPCS: 36415; 80048; 80076; 80307; 83605; 83690; 83735; 85025; 87040; 87147; 87205; 99283; 99285; 99291

== ENCOUNTER 2025-03-12 01:06 | Emergency (ER) | payer OTHER, SELFPAY ==
--- NOTE | 2025-03-12 | ECG_ITS ---
Test Reason : TACHY Blood Pressure : */* mmHG Vent. Rate : 98 BPM Atrial Rate : 98 BPM P-R Int : 130 ms QRS Dur : 96 ms QT Int : 366 ms P-R-T Axes : 68 40 22 degrees QTcB Int : 467 ms Normal sinus rhythm Normal ECG When compared with ECG of 25-Feb-2024 22:17, T wave inversion now evident in Anterior leads Referred By: Jhonny Barnett Electronically Signed By: PORTER MIRANDA MD
--- NOTE | 2025-03-12 01:11 | ED.GENADULT ---
HPI - General Adult General Chief complaint: ETOH/Substance Use Stated complaint: Erratic, AMS, suspected drug use, was in the [facility] Time Seen by Provider: 03/12/25 01:11 History of Present Illness ED Provider: Ericka MARCELO narrative: The patient is a 24-year-old female who was brought to the hospital by ambulance. Apparently she was found in the [facility]. She said that she had hurt her foot while walking barefoot. She seemed very unkempt and somewhat agitated, thrashing around a lot. She was brought to the hospital for evaluation. The patient recently gave to a child. The patient delivered a baby on 02/28/2025, proximally 11 days ago. The baby was born at [facility]. This was the patient's 3rd . Apparently her 1st ended with a spontaneous . Second was a 2nd trimester loss in October of 2019. She was apparently in halfway of the time. On this occasion the patient had a full-term delivery of a baby which was 3.6 kilos. The patient was identified as having substance use disorder and had had a urine tox screen positive for cocaine, methadone, fentanyl, and opioids on February 26. A 51A was filed and the baby was taken into DCF custody. The patient eloped from the hospital after her baby has been taken into DCF custody. The patient left the hospital on 03/01/2025. The patient has been homeless since leaving the hospital and I believe she has been living in the [facility]. Related Data Home Medications ?Medication ?Instructions ?Recorded ?Confirmed No Known Home Meds 04/08/24 04/08/24 Allergies Allergy/AdvReac Type Severity Reaction Status Date / Time morphine (MORPHINE) Allergy Mild SWELLING Verified 03/12/25 01:24 Penicillins (PCN) Allergy Mild SWELLING Verified 03/12/25 01:24 Review of Systems Review of Systems: Yes all other systems are reviewed and are negative PMFSH Past Medical History Medical History Left against medical advice Chronic anemia Social History Social History Household Members: None Housing: Homeless Do you presently have visiting nurse or other home services: No Unable to assess alcohol history related to: Refusing to respond Alcohol intake: current Patient Tobacco Use Status: Current everyday Tobacco user Tobacco use type: Cigarette Cigarette Packs Per Day: 1 Cigarettes Per Day: 20.0 Smoked in Last 30 Days: No Second Hand Smoke Exposure: No Use of substances other than those prescribed or required for medical reasons: No Substance Use Type: Crack/Cocaine and Heroin Advance Directives: No Advance Directives Information Provided: No Patient : No service: No Physical Exam ED Vital Signs: Vital Signs - 24 hr 03/12/25 01:14 03/12/25 02:10 03/12/25 03:58 Temperature 100.2 F 98.8 F 98.7 F Pulse Rate 120 H 102 H 75 Respiratory Rate 20 15 16 Blood Pressure 144/84 H 104/56 L 126/87 Pulse Oximetry 96 97 98 Oxygen Delivery Method Room Air 03/12/25 05:34 03/12/25 08:09 03/12/25 09:00 Temperature 98.8 F 98.7 F 98.7 F Pulse Rate 59 81 81 Respiratory Rate 15 12 12 Blood Pressure 124/75 124/75 124/75 Pulse Oximetry 100 97 97 Oxygen Delivery Method Room Air Room Air Room Air BMI result Body Mass Index 26.6 Const Other: The patient is a very unkempt 24-year-old. She has poor dentition. She was quite agitated and upset. She was flailing herself around the stretcher. However she was not aggressive. HENMT Other: Face is symmetrical. The patient has a poor dentition. Mucous membranes are moist. No intraoral swelling. No trismus. Eyes Other: Pupils are round equal, conjunctivae are clear, extraocular movements intact Neck Other: No cervical adenopathy, good range of motion of the neck. No nuchal rigidity. Resp Effort & Inspection: normal respiratory effort Auscultation: clear to auscultation bilaterally Cardio Rate: regular rate Rhythm: regular rhythm Heart sounds: S1 normal heart sound present and S2 normal heart sound present GI Other: The abdomen is soft and nontender Skin Other: The patient had dirty skin. She had some mild swelling to both lower legs and feet. This was nonpitting. No confluence erythema. No cellulitis. Neuro Other: The patient arrived white upset. She seemed somewhat hysterical, thrashing herself around the stretcher. She seemed to have some difficulty keeping still. Her speech was slurred. I had the impression that she was under the influence of some kind of drugs. However her face was symmetrical. Her eye movements were intact. Pupils were round and equal. She had symmetrical tone throughout her extremities. I did not feel she had any focal findings. Extrem Other: Both feet are well-perfused. Good dorsalis pedis pulses bilaterally. She seems to have some minimal edema to the feet which I think is probably from excessive walking. No calf swelling or tenderness. No asymmetry to the calves. Medications Administered Discontinued Medications Generic Name Dose Route Start Last Admin Trade Name Jim PRN Reason Stop Dose Admin Diazepam 10 mg 03/12/25 01:36 03/12/25 01:55 Diazepam 10 Mg/2 Ml Cartridge IVPUSH 03/12/25 01:37 10 mg STAT STA Administration Lactated Ringer's 1,000 mls @ 999 mls/hr 03/12/25 03:00 03/12/25 04:00 Lr IV 03/12/25 04:00 Infused .Q1H1M LILIA Infusion Lactated Ringer's 1,000 mls @ 999 mls/hr 03/12/25 04:00 03/12/25 05:49 Lr IV 03/12/25 05:00 Infused .Q1H1M LILIA Infusion Lactated Ringer's 1,000 mls @ 999 mls/hr 03/12/25 06:00 03/12/25 06:47 Lr IV 03/12/25 07:00 Not Given .Q1H1M LILIA Ketorolac Tromethamine 15 mg 03/12/25 06:24 03/12/25 06:47 Ketorolac Tromethamine 15 Mg/Ml Vial IVPUSH 03/12/25 06:25 Not Given ONCE ONE Medical Decision Making Medical Decision Making [facility] Narrative: The patient is a 24-year-old female with a history of substance use disorder who presented in an agitated state. She was treated with IV diazepam. She was given IV fluids. She consistently denied being suicidal or homicidal. She recently gave to a child who was taken into [facility] custody. Her urine toxicology screen was positive for opiates, methadone, fentanyl, and cocaine. (she was also positive for benzodiazepines but this was after she had received diazepam from us). She was observed for several hours. She has a mildly elevated CPK of 1600. She was given a breakfast. She did not wish to speak to the care team. She did not wish to speak with the recovery team. She said that she wanted to be discharged. She remains sleepy but I think she is otherwise medically stable. Her IV fell out after 2 L of IV fluids and she refused any additional attempts at placement of an IV. She refused a repeat CPK. My suspicion for significant rhabdomyolysis would be quite low in this case. Since the patient has had stable vital signs for several hours, since she ate a good breakfast, and since she is refusing additional care and since she does not wish to speak to the care team or the recovery team and since she denies suicidality I feel I have no other option but to discharge her. She is encouraged to return if she feels worse or wishes any other services provided. Lab Data 03/12/25 01:51 03/12/25 01:51 Labs: Lab Results 03/12/25 03/12/25 03/12/25 Range/Units 01:51 02:25 02:43 WBC 14.8 H (4.8-10.8) X10*3/uL RBC 4.80 (4.20-5.50) X10*6/uL Hgb 13.0 (12.0-16.0) g/dl Hct 38.3 (37.0-47.0) % MCV 79.8 L (80.0-98.0) fL MCH 27.1 (27.0-33.0) pg MCHC 33.9 (31.0-35.0) g/dl RDW 13.2 (11.0-16.0) % Plt Count 357 D (160-400) X10*3/uL MPV 8.4 L (9.4-12.3) fL Immature Gran % (Auto) 0.2 (0.0-0.4) % Neut % (Auto) 61.5 (45-73) % Lymph % (Auto) 21.8 (20-40) % Mora % (Auto) 8.2 (2-11) % Eos % (Auto) 7.3 H (0-4) % Baso % (Auto) 1.0 (0-2) % Lymph # (Auto) 3.2 (1.2-4.9) X10*3/uL Mora # (Auto) 1.2 (0.1-1.2) X10*3/uL Eos # (Auto) 1.1 H (0.0-0.4) X10*3/uL Baso # (Auto) 0.2 (0.0-0.2) X10*3/uL Abs Immat Gran (auto) 0.03 (0.00-0.03) X10*3/uL Absolute Neuts (auto) 9.1 H (2.0-8.3) x10*3/uL Absolute Nucleated RBC 0.000 (0.0-0.012) X10*3/uL Nucleated RBC % (auto) 0.0 (0.0-0.2) /100WBC Sodium 142 (135-145) mmol/L Potassium 3.5 (3.3-5.1) mmol/L Chloride 108 (96-108) mmol/L Carbon Dioxide 22 (22-29) mmol/L Anion Gap 16 (12-20) BUN 13 (9-16) mg/dL Creatinine 0.77 (0.5-1.4) mg/dL Estim Creat Clear Calc 123.5 Estimated GFR > 60 POC Glucose 74 (60-115) mg/dL Random Glucose 57 L* (60-115) mg/dL Lactic Acid 0.6 (0.5-2.0) mmol/L Calcium 8.9 (8.4-10.2) mg/dL Total Bilirubin 0.3 (0.0-1.0) mg/dL AST 62 H (5-31) U/L ALT 33 H (0-31) U/L Alkaline Phosphatase 104 (39-117) U/L Total Creatine Kinase 1507 H (26-140) U/L Total Protein 6.6 (6.5-8.0) g/dL Albumin 3.7 (3.5-5.0) g/dL Urine Color Urine Appearance Urine pH (5.0-9.0) Ur Specific Udall (1.005-1.025) Urine Protein (Neg-Trace) mg/dL Urine Glucose (UA) (Negative) mg/dL Urine Ketones (Negative) mg/dL Urine Blood (Negative) Urine Nitrite (Negative) Ur Leukocyte Esterase (Negative) Urine RBC (0-2) /HPF Urine WBC (0-5) /HPF Ur Squamous Epith Cells (0-2) /HPF Urine Bacteria (None Seen) Hyaline Casts (0-2) /LPF Urine Test (NEGATIVE) Salicylates < 5.0 L (15-30) mg/dL Urine Opiates Screen (Not Detect) Ur Buprenorphine Scrn (Not Detect) ng/mL Ur Oxycodone Screen (Not Detect) ng/mL Urine Methadone Screen (Not Detect) ng/mL Urine Fentanyl Screen (Not Detect) Acetaminophen < 3 (<30) mcg/mL Ur Barbiturates Screen (Not Detect) Ur Phencyclidine Scrn (Not Detect) Ur Amphetamines Screen (Not Detect) U Benzodiazepines Scrn (Not Detect) Urine Cocaine Screen (Not Detect) U Marijuana (THC) Screen (Not Detect) Ethyl Alcohol < 10 mg/dL 03/12/25 03/12/25 03/12/25 Range/Units 05:58 06:14 07:33 WBC (4.8-10.8) X10*3/uL RBC (4.20-5.50) X10*6/uL Hgb (12.0-16.0) g/dl Hct (37.0-47.0) % MCV (80.0-98.0) fL MCH (27.0-33.0) pg MCHC (31.0-35.0) g/dl RDW (11.0-16.0) % Plt Count (160-400) X10*3/uL MPV (9.4-12.3) fL Immature Gran % (Auto) (0.0-0.4) % Neut % (Auto) (45-73) % Lymph % (Auto) (20-40) % Mora % (Auto) (2-11) % Eos % (Auto) (0-4) % Baso % (Auto) (0-2) % Lymph # (Auto) (1.2-4.9) X10*3/uL Mora # (Auto) (0.1-1.2) X10*3/uL Eos # (Auto) (0.0-0.4) X10*3/uL Baso # (Auto) (0.0-0.2) X10*3/uL Abs Immat Gran (auto) (0.00-0.03) X10*3/uL Absolute Neuts (auto) (2.0-8.3) x10*3/uL Absolute Nucleated RBC (0.0-0.012) X10*3/uL Nucleated RBC % (auto) (0.0-0.2) /100WBC Sodium (135-145) mmol/L Potassium (3.3-5.1) mmol/L Chloride (96-108) mmol/L Carbon Dioxide (22-29) mmol/L Anion Gap (12-20) BUN (9-16) mg/dL Creatinine (0.5-1.4) mg/dL Estim Creat Clear Calc Estimated GFR POC Glucose 70 107 (60-115) mg/dL Random Glucose (60-115) mg/dL Lactic Acid (0.5-2.0) mmol/L Calcium (8.4-10.2) mg/dL Total Bilirubin (0.0-1.0) mg/dL AST (5-31) U/L ALT (0-31) U/L Alkaline Phosphatase (39-117) U/L Total Creatine Kinase (26-140) U/L Total Protein (6.5-8.0) g/dL Albumin (3.5-5.0) g/dL Urine Color Yellow Urine Appearance Clear Urine pH 5.5 (5.0-9.0) Ur Specific Udall 1.025 (1.005-1.025) Urine Protein Trace (Neg-Trace) mg/dL Urine Glucose (UA) Negative (Negative) mg/dL Urine Ketones >=160 (Negative) mg/dL Urine Blood Moderate (2+) H (Negative) Urine Nitrite Negative (Negative) Ur Leukocyte Esterase Moderate (2+) H (Negative) Urine RBC 3-5 H (0-2) /HPF Urine WBC 21-50 H (0-5) /HPF Ur Squamous Epith Cells 6-10 (0-2) /HPF Urine Bacteria Trace (None Seen) Hyaline Casts 0-2 (0-2) /LPF Urine Test NEGATIVE (NEGATIVE) Salicylates (15-30) mg/dL Urine Opiates Screen POSITIVE H (Not Detect) Ur Buprenorphine Scrn Not Detected (Not Detect) ng/mL Ur Oxycodone Screen Not Detected (Not Detect) ng/mL Urine Methadone Screen Positive H (Not Detect) ng/mL Urine Fentanyl Screen POSITIVE H (Not Detect) Acetaminophen (<30) mcg/mL Ur Barbiturates Screen Not Detected (Not Detect) Ur Phencyclidine Scrn Not Detected (Not Detect) Ur Amphetamines Screen Not Detected (Not Detect) U Benzodiazepines Scrn POSITIVE H (Not Detect) Urine Cocaine Screen POSITIVE H (Not Detect) U Marijuana (THC) Screen Not Detected (Not Detect) Ethyl Alcohol mg/dL Discharge Plan Discharge Clinical Impression: Substance use disorder Patient Disposition: Home, Self-Care Additional Instructions: Sunstance use disorder If you decide you want to stop or cut down on how much you?re using, you can call or walk into our outpatient Addiction Treatment office: [facility] (M-F 9am-5p) [address], [address] [phone] You may have been provided with safer injection?items, please take time to take care of YOU and your health. Use new supplies whenever possible to lessen the chances of infections and other illnesses.? ?If you need more supplies, please go [facility],? [address] [place] [address] OR you can call or text to coordinate delivery of safer supplies. You were also provided a list of several treatment providers in the area.? If you experience any worsening symptoms you cannot control please return to the ED or call 911. Please follow up at your next appointment. Things to look out for are fevers, chest pain, shortness of breath, severe pain, dizziness, fainting or any other concerns. Please return if you feel worse or if you feel we can offer any additional services. Prescriptions: No Action No Known Home Meds Interventions: ED Discharge Assessment Last Done: 03/12/25 09:00 Print Language: [place]
[2025-03-12 01:14] VITALS: BP 144/84; PULSE 120; RESP 20; TEMP 37.9; O2SAT 96; BMI 26.6
[2025-03-12] MEDS: diazePAM 10 MG/2 ML CARTRIDGE IVPUSH (01:55)
[2025-03-12 01:56] LABS: MANUAL DIFF FLAG NO
[2025-03-12 01:57] LABS: Hematocrit 38.3 % (37.0-47.0); Hemoglobin 13.0 g/dl (12.0-16.0); Imm Gran Abs Auto 0.03 X10*3/uL (0.00-0.03); Imm Gran Pct Auto 0.2 % (0.0-0.4); Lymphocytes Absolute Auto 3.2 X10*3/uL (1.2-4.9); Mean Corpuscular HGB Conc 33.9 g/dl (31.0-35.0); Mean Corpuscular Hemoglobin 27.1 pg (27.0-33.0); Mean Corpuscular Volume 79.8 fL (80.0-98.0); NRBC Abs Auto 0.000 X10*3/uL (0.0-0.012); NRBC Pct Auto 0.0 /100WBC (0.0-0.2); Platelet Count 357 X10*3/uL (160-400); Red Blood Count 4.80 X10*6/uL (4.20-5.50); White Blood Count 14.8 X10*3/uL (4.8-10.8)
[2025-03-12 02:10] VITALS: BP 104/56; PULSE 102; RESP 15; TEMP 37.1; O2SAT 97
[2025-03-12 02:18] LABS: Alanine Aminotransferase 33 U/L (0-31); Albumin Level 3.7 g/dL (3.5-5.0); Alkaline Phosphatase 104 U/L (39-117); Anion Gap 16 (12-20); Aspartate Amino Transferase 62 U/L (5-31); Blood Urea Nitrogen 13 mg/dL (9-16); Calcium 8.9 mg/dL (8.4-10.2); Carbon Dioxide 22 mmol/L (22-29); Chloride 108 mmol/L (96-108); Creatinine Clr Calc Pharmacy 123.5; Estimated Glomerular Filt Rate > 60; Potassium 3.5 mmol/L (3.3-5.1); Sodium 142 mmol/L (135-145); Total Protein 6.6 g/dL (6.5-8.0)
[2025-03-12 02:25] LABS: Acetaminophen LAB < 3 mcg/mL (<30); Salicylate < 5.0 mg/dL (15-30)
--- NOTE | 2025-03-12 02:29 | PC.NURSE ---
blood glucose 57, pt given applejuice w/ sugar PO
[2025-03-12 02:47] LABS: Glucose, Whole Blood 74 mg/dL (60-115)
[2025-03-12] MEDS: Lactated Ringers 1,000 ML 999 ML IV ×2 (02:56→04:34)
[2025-03-12 03:58] VITALS: BP 126/87; PULSE 75; RESP 16; TEMP 37.1; O2SAT 98
[2025-03-12 05:34] VITALS: BP 124/75; PULSE 59; RESP 15; TEMP 37.1; O2SAT 100
[2025-03-12 06:02] LABS: Glucose, Whole Blood 70 mg/dL (60-115)
--- NOTE | 2025-03-12 06:38 | PC.NURSE ---
pt awake, repeat POC was 70 given 2 sandwiches and orange juice, pt ambulated w/ x1 assist staff, urine sample collected and sent to lab, upon notification of more blood work pt became upset stated she wanted to leave and requesting to leave, provider Ericka made aware and at the bedside speaking w/ pt
[2025-03-12 06:45] LABS: Cannabinoid Screen Urine Not Detected (Not Detect)
[2025-03-12 06:58] LABS: UPreg QC Valid YES
[2025-03-12 07:16] LABS: Appearance Urine Clear; Glucose Urine UA Negative (Negative); PH 5.5 (5.0-9.0); Specific Gravity - Urine 1.025 (1.005-1.025); UMIC TRIGGER UACC YES
[2025-03-12 07:34] LABS: UACC Culture Trigger YES
[2025-03-12 07:38] LABS: Glucose, Whole Blood 107 mg/dL (60-115)
--- NOTE | 2025-03-12 07:59 | PC.NURSE ---
Pt POC 107, pt awake and eating breakfast tray
[2025-03-12 08:09] VITALS: BP 124/75; PULSE 81; RESP 12; TEMP 37.1; O2SAT 97
[2025-03-12 09:00] VITALS: BP 124/75; PULSE 81; RESP 12; TEMP 37.1; O2SAT 97
[2025-03-12] MEDS: Naloxone HCl Nasal TAKE HOME 4 MG SPRAY 8 MG NOSTRILALT (09:04)
--- NOTE | 2025-03-12 09:14 | PC.NURSE ---
patient given safe injection kit, changed into personal clothes. patient upset that we dont have additional sandwich to give her, patient was given breakfast tray, juices and crackers to go. ambulated off of unit with steady gait and dc papers
== END 2025-03-12 09:16 | disposition home or self-care (01) ==
LOC: HO.ED 09:02
PROVIDERS: Emergency Provider Emergency Medicine
DX: F19.90 Other psychoactive substance use, unspecified, uncomplicated (principal); F17.210 Nicotine dependence, cigarettes, uncomplicated; F14.90 Cocaine use, unspecified, uncomplicated; F11.90 Opioid use, unspecified, uncomplicated
CPT/HCPCS: 36415; 80053; 80143; 80179; 80307; 81001; 81003; 81025; 82550; 82947; 83605; 85025; 87040; 87086; 87147; 93005; 96361; 96374; 99285; J3360; J7120

== ENCOUNTER → 2025-03-12 02:17 | Outpatient (BNV) | payer OTHER, SELFPAY | PROVIDERS: Emergency Provider Emergency Medicine; Visit Provider Internal Medicine Cardiovascular Disease | DX: R00.0 Tachycardia, unspecified (principal) | CPT/HCPCS: 93010 ==

== ENCOUNTER 2025-08-23 07:17 | Emergency (ER) | payer OTHER, SELFPAY ==
[2025-08-23 07:21] VITALS: BP 112/76; PULSE 92; O2SAT 99
[2025-08-23 07:23] VITALS: BP 112/62; PULSE 72; RESP 16; TEMP 37; O2SAT 96; BMI 23.2
[2025-08-23 07:55] VITALS: BP 105/69; PULSE 67; RESP 18; TEMP 36.9; O2SAT 99
[2025-08-23 08:24] LABS: MANUAL DIFF FLAG NO
--- NOTE | 2025-08-23 08:24 | ED_ITS ---
HPI - Abdominal Pain General Chief Complaint: Abdominal Pain Stated Complaint: Ab pain 20 mins Time Seen by Provider: 08/23/25 08:02 Source: patient and RN notes reviewed Mode of arrival: ambulatory Limitations: no limitations History of Present Illness ED Provider: Gabby Alex PA-C HPI narrative: This is a 25-year-old female, with a past medical history of Opioid use disorder currently actively using several bags of fentanyl intranasally daily, last use was yesterday, who presents emergency department with concerns of lower abdominal pain that began this morning while walking around at 7:00 a.m.. She describes the pain as a cramping, intermittent pain. She does report cramping sensation with urination, otherwise denies any urinary frequency, or changes in urine color. She reports that the pain is located across her lower abdomen. No upper abdominal pain. She does report chronic constipation, last bowel movement was 2 days ago, she is still passing gas. She denies any fevers, chills, chest pain, shortness for breath, nausea, vomiting or diarrhea. She denies any abnormal vaginal discharge or bleeding. She does report that she is sexually active, states that her menstrual period is irregular, unsure when her last period was. She does report cholecystectomy several years ago, otherwise no other medical problems or surgeries. No other complaints or concerns at this time. MD elicited complaint: abdominal pain Pertinent past history: none Onset (ago): hour(s) Pain Consistency: intermittent Location: suprapubic Quality: cramping Migration to: no migration Exacerbating factors: nothing Relieving factors: nothing Associated symptoms: denies other symptoms Related Data Previous Rx's ?Medication ?Instructions ?Recorded cefuroxime axetil 250 mg tablet 250 mg PO BID 7 days # 13 tabs 08/23/25 docusate calcium 240 mg capsule 240 mg PO DAILY #30 ca ps 08/23/25 phenazopyridine 100 mg tablet 100 mg PO TID PRN pain 6 doses #6 08/23/25 (Pyridium) tabs polyethylene glycol 3350 17 17 g PO DAILY #119 grams 1 10/24/24 gram/dose oral powder (Miralax) Allergies Allergy/AdvReac Type Severity Reaction Status Date / Time morphine (MORPHINE) Allergy Mild SWELLING Verified 08/23/25 07:27 Penicillins (PCN) Allergy Mild SWELLING Verified 08/23/25 07:27 Review of Systems Review of Systems Constitutional : No Fever, No Chills ENT/Mouth : No sore throat, No Rhinorrhea Eyes: No Eye Pain, No Swelling, No Redness Cardiovascular : No Chest Pain, No SOB Respiratory : No Cough, No Sputum Gastrointestinal : No Nausea, No Vomiting, No Diarrhea, + abdominal Pain Genitourinary : + Dysuria, No Hematuria Musculoskeletal : No joint pain, No Myalgias, No Joint Swelling Skin : No Skin Lesions Neuro : No Weakness, No Numbness, No Headache All other systems reviewed and are negative Yes all other systems are reviewed and are negative Constitutional: Reports as per [facility] Past Medical History Attestation statement: The following information was validated with the patient. Medical History Left against medical advice Chronic anemia Social History Social History Household Members: None Housing: Homeless Do you presently have visiting nurse or other home services: No Alcohol intake: current Patient Tobacco Use Status: Current everyday Tobacco user Tobacco use type: Cigarette Cigarette Packs Per Day: 1 Cigarettes Per Day: 20.0 Second Hand Smoke Exposure: No Substance Use Type: Crack/Cocaine and Heroin Advance Directives: No Advance Directives Information Provided: Yes service: No Physical Exam ED Vital Signs: Vital Signs - 24 hr 08/23/25 07:23 08/23/25 07:55 08/23/25 10:31 Temperature 98.6 F 98.4 F 97.6 F Pulse Rate 72 67 76 Respiratory Rate 16 18 16 Blood Pressure 112/62 105/69 121/53 L Pulse Oximetry 96 99 96 Oxygen Delivery Method Room Air Room Air Room Air 08/23/25 11:34 Temperature 97.6 F Pulse Rate 76 Respiratory Rate 16 Blood Pressure 121/53 L Pulse Oximetry 96 Oxygen Delivery Method Room Air BMI result Body Mass Index 23.2 Const General: cooperative, comfortable and no acute distress Orientation/consciousness: patient oriented x3 Limitations: no limitations HENMT Head: Yes normal to inspection, Yes normocephalic and Yes atraumatic Ears: hearing grossly normal bilaterally General nose exam: Normal external nose present Face and sinus: Yes normal facial exam Mouth: Normal oral and palatal mucosa present, oropharynx normal and moist mucous membranes Throat: Yes posterior oropharynx normal Eyes General: appearance normal, both eyes and all related structures Eyelids: Yes eyelids normal Conjunctivae: conjunctivae normal Sclerae: sclerae normal Pupils: Equal, round and reactive pupils present EOM: EOMs intact bilaterally Neck Neck: Yes normal visual inspection, Yes full ROM and Yes no lymphadenopathy Lymphatic: no lymphadenopathy noted Chest Chest palpation & inspection: normal inspection of the chest Resp Effort & Inspection: normal respiratory effort and able to speak in complete sentences Auscultation: clear to auscultation bilaterally, no crackles, no rales, no rhonchi and no wheezes Cardio Rate: regular rate Rhythm: regular rhythm Heart sounds: S1 normal heart sound present and S2 normal heart sound present GI Other: Abdomen is soft, with tenderness palpation in the suprapubic region, no rebound or guarding. Inspection: Yes normal to inspection Skin General skin exam: no rashes or lesions noted Trauma: no lacerations or abrasions Wounds: no wounds Neuro General: patient oriented x3 and moves all extremities Cranial nerves: Yes Equal, round and reactive pupils present Extrem General: Yes normal to inspection Right upper extremity: normal to inspection Left upper extremity: normal to inspection Right lower extremity: normal to inspection Left lower extremity: normal to inspection Medical Decision Making Medical Decision Making MDM Narrative: This is a 25-year-old female who presents emergency department with concerns of lower abdominal cramping which started at 7:00 a.m. this morning. On arrival, vital signs within normal limits. She is speaking full sentences under no acute distress. Abdomen is soft with diffuse tenderness throughout the lower suprapubic region, no sharp pain. Patient also with opioid use disorder, currently actively using fentanyl, interested in restarting on methadone maintenance. Differential diagnoses include , UTI, acute cystitis, pyelonephritis. 8:55 AM 08/23/2025 (Gabby Alex PA-C): labs, urine, comprehensive care team. Urine does appear to be infected, awaiting testing. She reports no chance STIs. 8:59 AM 08/23/2025 (Gabby Alex PA-C): test is negative. Will start on antibiotics. She is interested in restarting on methadone therefore comprehensive care consultation was placed. 11:26 AM 08/23/2025 (Gabby Alex PA-C): discussed case with Suzanna Mason from recovery. Recommending starting on methadone 40 mg, will administer last dose letter. Patient will follow-up with the [facility] clinic on [facility] and [place] tomorrow. Given strict return precautions, she understands and agrees with plan. She was also requesting constipation medication, therefore this was also sent to the pharmacy. Also treated with Pyridium in the department today. Differential Diagnosis Differential Diagnoses: The differential diagnosis associated with the presentation includes see above Lab Data MDM Lab Attestation statement: I reviewed the patient's lab results. patient with no leukocytosis, stable H&H, chemistry revealing no significant electrolyte derangement. Urine with proteinuria, hematuria, nitrites, leuk esterases, wbc's. 08/23/25 08:19 08/23/25 08:19 Labs: Lab Results 08/23/25 08/23/25 Range/Units 08:03 08:19 WBC 7.7 (4.8-10.8) X10*3/uL RBC 4.80 (4.20-5.50) X10*6/uL Hgb 12.4 (12.0-16.0) g/dl Hct 39.2 (37.0-47.0) % MCV 81.7 (80.0-98.0) fL MCH 25.8 L (27.0-33.0) pg MCHC 31.6 (31.0-35.0) g/dl RDW 13.1 (11.0-16.0) % Plt Count 288 (160-400) X10*3/uL MPV 8.8 L (9.4-12.3) fL Immature Gran % (Auto) 0.1 (0.0-0.4) % Neut % (Auto) 63.5 (45-73) % Lymph % (Auto) 21.7 (20-40) % Becker % (Auto) 6.7 (2-11) % Eos % (Auto) 7.0 H (0-4) % Baso % (Auto) 1.0 (0-2) % Lymph # (Auto) 1.7 (1.2-4.9) X10*3/uL Becker # (Auto) 0.5 (0.1-1.2) X10*3/uL Eos # (Auto) 0.5 H (0.0-0.4) X10*3/uL Baso # (Auto) 0.1 (0.0-0.2) X10*3/uL Abs Immat Gran (auto) 0.01 (0.00-0.03) X10*3/uL Absolute Neuts (auto) 4.9 (2.0-8.3) x10*3/uL Absolute Nucleated RBC 0.000 (0.0-0.012) X10*3/uL Nucleated RBC % (auto) 0.0 (0.0-0.2) /100WBC Sodium 140 (135-145) mmol/L Potassium 4.0 (3.3-5.1) mmol/L Chloride 107 (96-108) mmol/L Carbon Dioxide 27 (22-29) mmol/L Anion Gap 10 L (12-20) BUN 12 (9-16) mg/dL Creatinine 0.64 (0.5-1.4) mg/dL Estim Creat Clear Calc 134.3 Estimated GFR > 60 Random Glucose 89 (60-115) mg/dL Calcium 9.1 (8.4-10.2) mg/dL Total Bilirubin 0.2 (0.0-1.0) mg/dL AST 20 (5-31) U/L ALT 9 (0-31) U/L Alkaline Phosphatase 72 (39-117) U/L Total Protein 7.1 (6.5-8.0) g/dL Albumin 3.9 (3.5-5.0) g/dL Lipase 27 (8-78) U/L Beta HCG, Quant < 2 mIU/mL Urine Color Yellow Urine Appearance Turbid Urine pH 7.5 (5.0-9.0) Ur Specific [place] 1.020 (1.005-1.025) Urine Protein 30 (1+) H (Neg-Trace) mg/dL Urine Glucose (UA) Negative (Negative) mg/dL Urine Ketones Negative (Negative) mg/dL Urine Blood Small (1+) H (Negative) Urine Nitrite Positive H (Negative) Ur Leukocyte Esterase Large (3+) H (Negative) Urine RBC 6-10 H (0-2) /HPF Urine WBC >50 H (0-5) /HPF Ur Squamous Epith Cells 0-2 (0-2) /HPF Urine Bacteria 4+ (None Seen) Hyaline Casts 0-2 (0-2) /LPF Independent Interpretation I performed an independent interpretation of an: EKG Interpretation: EKG normal sinus rhythm at a ventricular rate of 61 beats per minute, [place] interval 114, QT QTC 402/404 Medications Administered Discontinued Medications Generic Name Dose Route Start Last Admin Trade Name Jim PRN Reason Stop Dose Admin Cefuroxime Axetil 250 mg 08/23/25 09:01 08/23/25 09:21 Cefuroxime Axetil 250 Mg Tablet PO 08/23/25 09:02 250 mg ONCE ONE Administration Methadone HCl 40 mg 08/23/25 11:21 08/23/25 11:30 Methadone Hcl 20 Mg/2 Ml Oral.Conc PO 08/23/25 11:22 40 mg ONCE ONE Administration Naloxone HCl 8 mg 08/23/25 09:02 08/23/25 09:21 Naloxone Hcl Nasal Take Home 4 Mg [place] NOSTRILALT 08/23/25 09:03 8 mg ONCE ONE Administration Phenazopyridine HCl 100 mg 08/23/25 11:22 08/23/25 11:30 Phenazopyridine Hcl 100 Mg Tablet PO 08/23/25 11:23 100 mg ONCE ONE Administration Discharge Plan Discharge Clinical Impression: Urinary tract infection, Opioid use disorder Patient Disposition: Home, Self-Care Instructions: Urinary Tract Infection in Women (ED), Opioid Use Disorder (ED) Additional Instructions: You were seen in the emergency department in you were found to have a urinary tract infection. We have started you on antibiotics. Your 1st dose was given to you in the department today. We also gave you a medication called Pyridium, this will cause your urine to be bright orange, this is a very common side effect. drink plenty of fluids get plenty of rest. Finish the entire course of your antibiotics even if your symptoms improve. You also were interested in restarting on methadone. If any new or worsening symptoms occur including but not limited to worsening pain, high fevers, chest pain, shortness of breath, please seek emergent care. We have started you on methadone 40 mg, we had given you a last dose letter. Please go straight to the clinic ([facility]) tomorrow morning [address] [address] You received narcan in order to reverse the effects of overdose. Narcan only lasts about 45 min to 1 hour in the system. You may have been given narcan to take home with you today, please keep it near you if you are going to use again, so others can use it if needed.? The number one risk for fatal overdose is using alone? [facility] [employer] [facility] is a 31/03 hotline where you can be on the phone with someone while you use, and they can call for help if they suspect an overdose: [phone] Things to look out for when you leave include severe vomiting or diarrhea, headaches, muscle cramps, fever, coughing, chest pain, or if you feel so short of breath you cannot walk to the bathroom. Please seek care and return any time for worsening symptoms.? You may have been provided with safer injection?items, please take time to take care of YOU and your health. Use new supplies whenever possible to lessen the chances of infections and other illnesses.? If you need more supplies, please go [facility],? [address] [place] [address] OR you can call or text to coordinate delivery of safer supplies. If you decide you want to stop or cut down on how much you?re using, please call the numbers on the list provided to you or you can come to our outpatient Addiction Treatment office [facility] (M-F 9am-5p) [address] [place] [address], [address] [phone] Prescriptions: New cefuroxime axetil 250 mg tablet 250 mg PO BID 7 Days Qty: 13 0RF docusate calcium 240 mg capsule 240 mg PO DAILY Qty: 30 0RF polyethylene glycol 3350 [Miralax] 17 gram/dose powder 17 g PO DAILY Qty: 119 0RF phenazopyridine [Pyridium] 100 mg tablet 100 mg PO TID PRN (Reason: pain) Qty: 6 0RF Interventions: ED Discharge Assessment Last Done: 08/23/25 11:34 Discharge Date/Time: 08/23/25 11:35 Print Language: Beninese
[2025-08-23 08:25] LABS: Appearance Urine Turbid; Glucose Urine UA Negative (Negative); PH 7.5 (5.0-9.0); Specific Gravity - Urine 1.020 (1.005-1.025); UMIC TRIGGER UACC YES
[2025-08-23 08:31] LABS: UACC Culture Trigger YES
[2025-08-23 08:34] LABS: Hematocrit 39.2 % (37.0-47.0); Hemoglobin 12.4 g/dl (12.0-16.0); Imm Gran Abs Auto 0.01 X10*3/uL (0.00-0.03); Imm Gran Pct Auto 0.1 % (0.0-0.4); Lymphocytes Absolute Auto 1.7 X10*3/uL (1.2-4.9); Mean Corpuscular HGB Conc 31.6 g/dl (31.0-35.0); Mean Corpuscular Hemoglobin 25.8 pg (27.0-33.0); Mean Corpuscular Volume 81.7 fL (80.0-98.0); NRBC Abs Auto 0.000 X10*3/uL (0.0-0.012); NRBC Pct Auto 0.0 /100WBC (0.0-0.2); Platelet Count 288 X10*3/uL (160-400); Red Blood Count 4.80 X10*6/uL (4.20-5.50); White Blood Count 7.7 X10*3/uL (4.8-10.8)
[2025-08-23 08:45] LABS: Alanine Aminotransferase 9 U/L (0-31); Albumin Level 3.9 g/dL (3.5-5.0); Alkaline Phosphatase 72 U/L (39-117); Anion Gap 10 (12-20); Aspartate Amino Transferase 20 U/L (5-31); Blood Urea Nitrogen 12 mg/dL (9-16); Calcium 9.1 mg/dL (8.4-10.2); Carbon Dioxide 27 mmol/L (22-29); Chloride 107 mmol/L (96-108); Creatinine Clr Calc Pharmacy 134.3; Estimated Glomerular Filt Rate > 60; Lipase 27 U/L (8-78); Potassium 4.0 mmol/L (3.3-5.1); Sodium 140 mmol/L (135-145); Total Protein 7.1 g/dL (6.5-8.0)
--- NOTE | 2025-08-23 09:01 | ECG_ITS ---
Test Reason : drug use check QTC Blood Pressure : */* mmHG Vent. Rate : 61 BPM Atrial Rate : 61 BPM P-R Int : 114 ms QRS Dur : 96 ms QT Int : 402 ms P-R-T Axes : 35 67 45 degrees QTcB Int : 404 ms Normal sinus rhythm Normal ECG When compared with ECG of 12-Mar-2025 02:17, Vent. rate has decreased by 37 bpm Non-specific change in ST segment in Anterior leads Nonspecific T wave abnormality has replaced inverted T waves in Anterior leads QT has shortened Referred By: Gabby Alex Electronically Signed By: Meliton López
[2025-08-23] MEDS: Naloxone HCl Nasal TAKE HOME 4 MG SPRAY 8 MG NOSTRILALT (09:21)
[2025-08-23 10:31] VITALS: BP 121/53; PULSE 76; RESP 16; TEMP 36.4; O2SAT 96
[2025-08-23] MEDS: methADONE HCl 20 MG/2 ML ORAL.CONC 40 MG PO (11:30)
[2025-08-23 11:34] VITALS: BP 121/53; PULSE 76; RESP 16; TEMP 36.4; O2SAT 96
== END 2025-08-23 11:35 | disposition home or self-care (01) ==
PROVIDERS: Emergency Provider Emergency Medicine Emergency Medical Services
DX: N39.0 Urinary tract infection, site not specified (principal); F11.90 Opioid use, unspecified, uncomplicated; K59.09 Other constipation; Z72.0 Tobacco use; Z59.00 Homelessness unspecified
CPT/HCPCS: 36415; 80053; 81001; 83690; 84702; 85025; 87086; 87088; 87186; 93005; 99284

== ENCOUNTER → 2025-08-23 09:01 | Outpatient (BNV) | payer MEDICAID, SELFPAY | PROVIDERS: Emergency Provider Emergency Medicine Emergency Medical Services; Visit Provider Internal Medicine Cardiovascular Disease | DX: Z13.6 Encounter for screening for cardiovascular disorders (principal) | CPT/HCPCS: 93010 ==